=== PATIENT | male | born 1955 | race Two or more races ===

== ENCOUNTER 2025-05-02 15:53 | Emergency (ER) | payer MEDICARE, MEDICAID, SELFPAY ==
--- OUTSIDE RECORDS SUMMARY | 2024-04-05 03:30 | XMS_ITS ---
Author Organization [facility] in [place] Address [address] [place] [address] Care Team Providers Care Sliver Cutter Name Role Phone Hunter Montes MD Primary Care Provider Unavailabl e Provider, [facility] Unavailable [phone] Encounters Encounter Location Date Provider Diagnosis [facility] [address] [place] [address] 04/05/2024 [facility] Provider Plan Of Treatment No Information Progress Notes * Ryder FROST SrDOB:[birth year] (69 yo M)Acc No.[id number]:04/05/2024 UNLOCKED PROGRESS NOTE Patient: Gilma AGUILARRyder LEROY Sr Provider: A MI Provider :1955 A ge:68 Y S ex:Male Date:04/05/2024 Address:[address] [place], [place] [id number] Pcp:Hunter Montes MD Check In:07:51 AM EST * * Electronic signature of ASC Provider on 05/02/2025 at 04:06 PM EDT Sign off status: Pending Visit Status: A RR (Check-In) * Provider: A SC Provider Date: 04/05/2024 Generated for Keilai aida/Mara/eTransmitting on: 05/02/2025 04:06 PM EDT
--- OUTSIDE RECORDS SUMMARY | 2024-04-05 05:15 | XMS_ITS ---
Author Organization The [facility] in [place] Address [address] [place] [address] Care Team Providers Care Business Analysis Professional Name Role Phone Hunter Montes MD Primary Care Provider UnavailAdan Lowe Unavailable [phone] REASON FOR VISIT FISTULOGRAM Encounters Encounter Location Date Provider Diagnosis [facility] [address] [place] [address] 04/05/2024 Adan Beltran Stenosis of other vascular prosthetic devices, implants and grafts, initial encounter T82.858A and End stage renal disease N18.6 Assessments Encounter Date Diagnosis (ICD Code) Assessment Notes Treatment Notes Treatment Clinical Notes Section Notes 04/05/2024 Stenosis of other vascular prosthetic devices, implants and grafts, initial encounter (ICD-10 - T82.858A) 04/05/2024 End stage renal disease (ICD-10 - N18.6) Plan Of Treatment No Information Progress Notes * Ryder FROST SrDOB:[birth year] (68 yo M)Acc No.[id number]:04/05/2024 Patient: Wellington DUMONTel Sr Provider: John Beltran MD :1955 A ge:68 Y S ex:Male Date:04/05/2024 Address:[address] [place], [place] [phone] Pcp:Hunter Montes MD * * Sign off status: Completed Visit Status: P EN (Pending) true * Provider: John Beltran MD Date: 0 04/05/2024 Generated for Aki parra/Mara/Seven on: 0 05/02/2025 04:07 PM EDT
--- OUTSIDE RECORDS SUMMARY | 2024-04-12 07:30 | XMS_ITS ---
Author Organization [facility] in [place] Address [address] [place] [address] Care Team Providers Care Hospital Technician Name Role Phone Imm Hunter CHAND Primary Care Provider UnavailAdan Lowe Unavailable [phone] REASON FOR VISIT follow up from angio/stent Medications Medication SIG (Take, Route, Frequency, Duration) Notes Start Date End Date Status NovoLOG Mix 70/30 (70-30) 100 UNIT/ML as directed Subcutaneous 42 units BID Unknown Percocet 325 mg-5 mg 1 tablet TID Unknown Simvastatin 10 mg 1 tablet DAILY Unknown Vitamin B 12 100 MCG as directed Orally Daily Unknown Xphozah 30 MG TAKE ONE TABLET BY MOUTH TWICE A DAY for 30 Unknown amLODIPine Besylate 5 MG 1 tablet Orally Once a day for 30 day(s) 09/29/2020 Unknown Calcitriol 0.25 MCG 1 capsule Orally Mon , Wed, Fri for 30 day(s) 09/29/2020 Unknown EQ ClearLax 17 GM/SCOOP MIX 17 GRAMS IN 8 OUNCES OF LIQUID AND DRINK ONCE DAILY NEEDED. 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 Continue to use AVF for dialysis as before. Follow up as needed. Plan Of Treatment No Information Progress Notes * Ryder FROST SrDOB:[birth year] (68 yo M)Acc No.[id number]:04/12/2024 Progress Note Patient: Gilma Ryder DOLAN Sr Provider: John Beltran MD :1955 A ge:68 Y S ex:Male Date:04/12/2024 Address:[address] [place], [place] [phone] Pcp:Hunter Montes MD Check In:10:51 AM ESTCheck O ut:11:14 AM EST Subjective: * Chief Complaints: * 1 . Follow up from angio/stent. 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 Modified On:04/09/2019W/U Status:confirmed N18.4 Chronic kidney disea se, stage 4 (severe) Modified On:02/27/2018U Status:confirmed 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 Modified On:06/26/2018U Status:confirmed E10.51 DM (diabetes mellitu s) type I controlled, peripheral vascular disorder Modified On:08/09/2016U Status:confirmed N18.5 Chronic kidney disea se, stage 5 Modified On:09/29/2020U Status:confirmed N18.5 Chronic kidney disea se (CKD) stage G5/A1, glomerular filtration rate (GFR) less than or equal to 15 mL/min/1.73 square meter and albuminuria creatinine ratio less than 30 mg/g Modified On:09/30/2020U Status:confirmed N18.30 Chronic kidney disea se, stage 3 unspecified Modified On:02/22/2022U Status:confirmed N18.6 End-stage renal dise ase Modified On:02/23/2022U Status:confirmed T82.858A Stenosis of other va scular prosthetic devices, implants and grafts, initial encounter Modified On:03/24/2023U Status:confirmed N18.6 End stage renal dise ase Modified On:03/24/2023U Status:confirmed I77.0 Arteriovenous fistul a, acquired Modified On:04/12/2024U Status:confirmed * Medical History: H istory of diabetes mellitus. * Social History: T obacco Use: T obacco Use/Smoking P atient is a l ight tobacco smoker. * Medications: U nknown amLODIPine Besylate 2.5 MG Tablet 1 tablet Orally Once a day , Unknown amLODIPine Besylate 5 MG Tablet 1 tablet Orally Once a day , Unknown Calcitriol 0.25 MCG Capsule 1 capsule Orally Mon, Wed, Fri , Unknown EQ ClearLax(Polyethylene Glycol 3350) 17 GM/SCOOP Powder MIX 17 GRAMS IN 8 OUNCES OF LIQUID AND DRINK ONCE DAILY NEEDED. , Unknown Furosemide 40 MG Tablet 1 tablet Orally Once a day , Unknown Gabapentin 600 mg tablet 1 tablet TID , Unknown NovoLOG Mix 70/30(Insulin Aspart Prot & Aspart) (70-30) 100 UNIT/ML Suspension as directed Subcutaneous , Notes to Pharmacist: 42 units BID, Unknown Percocet(oxyCODONE-Acetaminophen) 325 mg-5 mg tablet 1 tablet TID , Unknown Simvastatin 10 mg tablet 1 tablet DAILY , Unknown Vitamin B 12 100 MCG Lozenge as directed Orally Daily , Unknown Xphozah(Tenapanor HCl (CKD)) 30 MG Tablet TAKE ONE TABLET BY MOUTH TWICE A DAY Objective: * Vitals: B P:133/81mm Hg, HR:82/min, Oxygen sat %:99%, Ht-cm: 177.8 cm. Assessment: * Assessment: 1. A rteriovenous fistula, acquired - I77.0 (Primary) Patient seen in office today to have stitches removed. Continue to use AVF for dialysis as before. Follow up as needed. Plan: * Treatment: * Procedure Codes: 9 9024 POST OP VISIT * * Sign off status: Completed Visit Status: C HK (Check Out) true * Provider: John Beltran MD Date: 0 04/12/2024 Generated for Aki parra/Mara/Allynitting on: 0 05/02/2025 04:05 PM EDT
--- OUTSIDE RECORDS SUMMARY | 2024-05-04 06:45 | XMS_ITS ---
Author Organization [facility] Address [address], [place] [address] Care Team Providers Care Special Warfare Operator Name Role Phone Dora Toney Primary Care Provider [phone] REASON FOR VISIT nerupoathy- Assess- CVD hx Medications Medication SIG (Take, Route, Frequency, Duration) Notes Start Date End Date Status Calcium Acetate (Phos Binder) 667 MG 2 capsules with meals Orally Three times a day for 30 days Active Insulin Syringe 31G X 5/16 1 ML 1 two times daily for 90 days 05/14/2013 Active Vitamin D3 50 MCG (1999) TAKE 1 CAPSULE BY MOUTH ONCE DAILY Oral for 30 Days Active Pen Epping 32G X 4 MM as directed twice a day for 90 days 03/23/2022 Active rOPINIRole HCl 0.25 MG TAKE 1 TABLET BY MOUTH ONCE DAILY Oral for 30 Active Gabapentin 100 MG 2 capsules in the morning, 1 capsule in the evening. Orally as directed for 30 days OARRS reviewed without issue Active Lancets - 1 Lancet Used Twice daily to check blood sugar -whatever brand insurance covers Active Docusate Sodium 100 MG 1 capsule as needed Orally Once a day Active HumuLIN 70/30 (70-30) 100 UNIT/ML 38 units in the morning, 36 units in the evening Subcutaneous twice a day for 30 days 11/12/2021 Active HYDROcodone-Acetami nophen 5-325 MG 2 tablet as needed on dialysis days Orally three times weekly for 30 days OARRS reviewed without issue. 12/14/2023 Not-Taking Pantoprazole Sodium 40 MG 1 tablet Orally Once a day for 30 days Active FreeStyle Petra 14 Day Sensor - APPLY 1 SENSOR TO THE BACK OF THE ARM, ONCE EVERY 14 DAYS. for 84 days 6 sensors Active Blood Glucose Meter 1 Meter. Given 1 time. Used daily to check blood sugars -whatever brand insurance covers Active Blood Glucose Test - 1 Strip Used Twice daily to check sugar -whatever brand insurance covers Active Social History Sex Assigned At : Social History Observation Description Sex Assigned At Male Encounters Encounter Location Date Provider Diagnosis Main [address] [place], [place] [id number] 05/04/2024 Dora Toney Plan Of Treatment No Information Progress Notes * Wellington FROSTRimaOB:1955 (69 yo M)Acc No.[id number]:05/04/2024 Medical Note Patient: Ryder DUMONT Provider: Héctor Toney :1955 A ge:68 Y S ex:Male Date:05/04/2024 Address:[address] [place], [place] [id number] Subjective: * Chief Complaints: * 1 . nerupoathy- Assess- CVD hx. * Medical History: * Medications: T aking Gabapentin 100 MG Capsule 2 capsules in the morning, 1 capsule in the evening. Orally as directed , Notes to Pharmacist: OARRS reviewed without issue, Taking Docusate Sodium 100 MG Capsule 1 capsule as needed Orally Once a day , Taking rOPINIRole HCl 0.25 MG Tablet TAKE 1 TABLET BY MOUTH ONCE DAILY Oral , Taking Vitamin D3 50 MCG (1999 UT) Capsule TAKE 1 CAPSULE BY MOUTH ONCE DAILY Oral , Taking Pen Epping 32G X 4 MM Miscellaneous as directed twice a day , Taking Insulin Syringe 31G X 5/16 1 ML Misc 1 two times daily , Taking Calcium Acetate (Phos Binder) 667 MG Capsule 2 capsules with meals Orally Three times a day , Taking Pantoprazole Sodium 40 MG Tablet Delayed Release 1 tablet Orally Once a day , Taking FreeStyle Petra 14 Day Sensor - Miscellaneous APPLY 1 SENSOR TO THE BACK OF THE ARM, ONCE EVERY 14 DAYS. , Notes to Pharmacist: 6 sensors, Taking Blood Glucose Meter 1 Meter. Given 1 time. Used daily to check blood sugars , Notes to Pharmacist: -whatever brand insurance covers, Taking Blood Glucose Test - Strip 1 Strip Used Twice daily to check sugar , Notes to Pharmacist: -whatever brand insurance covers, Taking Lancets - Miscellaneous 1 Lancet Used Twice daily to check blood sugar , Notes to Pharmacist: -whatever brand insurance covers, Taking HumuLIN 70/30 (70-30) 100 UNIT/ML Suspension 38 units in the morning, 36 units in the evening Subcutaneous twice a day , Not-Taking/PRN HYDROcodone-Acetaminophen 5-325 MG Tablet 2 tablet as needed on dialysis days Orally three times weekly , Notes to Pharmacist: OARRS reviewed without issue. Objective: * Vitals: Assessment: Plan: * Treatment: * Billing Information: * Visit Code: * Procedure Codes: * Electronic signature of MARISA Milner on 05/02/2025 at 04:06 PM EDT Sign off status: Pending * Provider: Héctor Toney Date: 05/04/2024 Generated for Aki Rush on: 05/02/2025 04:06 PM EDT
--- OUTSIDE RECORDS SUMMARY | 2024-05-21 08:45 | XMS_ITS ---
Author Organization [facility] Address [address], [place] [address] Care Team Providers Care Lumber Tailer Name Role Phone Dora Toney Primary Care Provider REASON FOR VISIT nerupoathy- Assess- CVD hx Medications Medication SIG (Take, Route, Frequency, Duration) Notes Start Date End Date Status Pantoprazole Sodium 40 MG 1 tablet Orally Once a day for 30 days Active FreeStyle Petra 14 Day Sensor - APPLY 1 SENSOR TO THE BACK OF THE ARM, ONCE EVERY 14 DAYS. for 84 days 6 sensors Active Insulin Syringe 31G X 5/16 1 ML 1 two times daily for 90 days 05/14/2013 Active Calcium Acetate (Phos Binder) 667 MG 2 capsules with meals Orally Three times a day for 30 days Active Blood Glucose Meter 1 Meter. Given 1 time. Used daily to check blood sugars -whatever brand insurance covers Active Vitamin D3 50 MCG (1999 UT) TAKE 1 CAPSULE BY MOUTH ONCE DAILY Oral for 30 Days Active Pen Eureka 32G X 4 MM as directed twice a day for 90 days 03/23/2022 Active Docusate Sodium 100 MG 1 capsule as needed Orally Once a day Active rOPINIRole HCl 0.25 MG TAKE 1 TABLET BY MOUTH ONCE DAILY Oral for 30 Active Gabapentin 100 MG 2 capsules in the morning, 1 capsule in the evening. Orally as directed for 30 days OARRS reviewed without issue Active Lancets - 1 Lancet Used Twice daily to check blood sugar -whatever brand insurance covers Active HumuLIN 70/30 (70-30) 100 UNIT/ML 38 units in the morning, 36 units in the evening Subcutaneous twice a day for 30 days 11/12/2021 Active HYDROcodone-Acetami nophen 5-325 MG 2 tablet as needed on dialysis days Orally three times weekly for 30 days OARRS reviewed without issue. 12/14/2023 Not-Taking Blood Glucose Test - 1 Strip Used Twice daily to check sugar -whatever brand insurance covers Active Social History Sex Assigned At : Social History Observation Description Sex Assigned At Male Encounters Encounter Location Date Provider Diagnosis Main [address] [place], [place] [id number] 05/21/2024 Dora Toney Plan Of Treatment No Information Progress Notes * Wellington FROSTRimaOB:1955 (69 yo M)Acc No.[id number]:05/21/2024 Medical Note Patient: Ryder DUMONT Provider: Héctor Toney :1955 A ge:68 Y S ex:Male Date:05/21/2024 Address:[address] [place], [place] [id number] Subjective: * Chief Complaints: * 1 . [...] MOUTH ONCE DAILY Oral , Taking Pen Eureka 32G X 4 MM Miscellaneous as directed [...] signature of MARISA Milner on 05/02/2025 at 04:08 PM EDT Sign off status: Pending * Provider: Héctor Toney Date: 05/21/2024 Generated for Aki Rush on: 05/02/2025 04:08 PM EDT
--- OUTSIDE RECORDS SUMMARY | 2024-05-31 06:45 | XMS_ITS ---
Author Organization [facility] Address [address] [place] [address] Care Team Providers Care Production Designer Name Role Phone Dora Toney Primary Care Provider [phone] REASON FOR VISIT neuropathy Medications Medication SIG (Take, Route, Frequency, Duration) Notes Start Date End Date Status HumuLIN 70/30 (70-30) 100 UNIT/ML 38 units [...] check sugar -whatever brand insurance covers Active Lancets - 1 Lancet Used Twice daily to check blood sugar -whatever brand insurance covers Active Blood Glucose Meter 1 Meter. Given 1 time. Used daily to check blood sugars -whatever brand insurance covers Active FreeStyle Petra 14 Day Sensor - APPLY 1 SENSOR TO THE BACK OF THE ARM, ONCE EVERY 14 DAYS. for 84 days 6 sensors Active Calcium Acetate (Phos Binder) 667 MG 2 capsules with meals Orally Three times a day for 30 days Active Pantoprazole Sodium 40 MG 1 tablet Orally Once a day for 30 days Active Pen Osseo 32G X 4 MM as directed twice a day for 90 days 03/23/2022 Active Insulin Syringe 31G X 5/16 1 ML 1 two times daily for 90 days 05/14/2013 Active Docusate Sodium 100 MG 1 capsule as needed Orally Once a day Active rOPINIRole HCl 0.25 MG TAKE 1 TABLET BY MOUTH ONCE DAILY Oral for 30 Active Gabapentin 100 MG 2 capsules in the morning, 1 capsule in the evening. Orally as directed for 30 days OARRS reviewed without issue Active Vitamin D3 50 MCG (1999) TAKE 1 CAPSULE BY MOUTH ONCE DAILY Oral for 30 Days Active Social History Sex Assigned At : Social History Observation Description Sex Assigned At Male Encounters Encounter Location Date Provider Diagnosis Main [address] [place], [place] [id number] 05/31/2024 Dora Toney Plan Of Treatment No Information Progress Notes * FROSTJose EduardoOB:1955 (69 yo M)Acc No.[id number]:05/31/2024 Medical Note Patient: Ryder DUMONT Provider: Héctor Toney :1955 A ge:68 Y S ex:Male Date:05/31/2024 Address:[address] [place], [place] [id number] Subjective: * Chief Complaints: * 1 . Neuropathy. * Medical History: * Medications: T aking [...] MOUTH ONCE DAILY Oral , Taking Pen Osseo 32G X 4 MM Miscellaneous as directed [...] EDT Sign off status: Pending * Provider: Hécotr Toney Date: 05/31/2024 Generated for Aki Rush on: 05/02/2025 04:06 PM EDT
[2025-05-02 16:01] VITALS: BP 177/84; PULSE 78; TEMP 37; O2SAT 100; BMI 28.1
--- OUTSIDE RECORDS SUMMARY | 2025-05-02 16:05 | XMS_ITS | Encounter Summary ---
Author Organization [facility] Address [id number] [address] [place] [address] Care Team Providers Care Diabetes Manager Name Role Phone Litzy Alamo APRN-SERVICE LINE BUS CLEANER Primary Care Provider Encounter Details Date Type Department Care Team (Late st Contact Info) Description 05/29/2021 Abstract [facility] [address] [place] [phone] Letty Sampson COA Social History Tobacco Use Types Packs/Day Years Used Date Smoking Tobacco: Light Smoker Cigarettes Smokeless Tobacco: Never Alcohol Use Standard Drinks/Week Comments Yes 0 (1 standard drink = 0.6 oz pur e alcohol) PHQ-2 Answer Date Recorded Total Score 0 01/01/2021 Childcare Answer Date Recorded Childcare Unknown 03/28/2019 Employment Answer Date Recorded Employment Unknown 03/28/2019 Purpose - Life Answer Date Recorded I have a purpose and direction in my life. Stron gly Agree 01/01/2021 Sex and Gender Information Value Date Recorded Sex Assigned at Not on file Legal Sex Male 11:26 AM EDT Gender Identity Not on file Sexual Orientation Not on file documented as of this encounter Plan of Treatment Upcoming Encounters Date Type Department Care Team (Late st Contact Info) Description 05/09/2025 11:10 AM EDT Office Visit [facility] [address] [place] [phone] Rayshawn Gibbons, DO [address] [place] [address] 05/24/2025 11:00 AM EDT Office Visit [facility] [address] [place] [phone] Litzy Alamo APRN-CNP [address] [place] [phone] documented as of this encounter Visit Diagnoses Not on filedocumented in this encounter Additional Health Concerns Assessment Noted Time PHQ-9 Depression Total Score: 0 01/02/20 21 3:05 PM EDT documented as of this encounter Care Teams Diabetes Manager Relationship Specialty Start Date End Date Litzy Alamo APRN-CNP [address] [place] [phone] PCP - General Nurse Practitioner 07/23/24 documented as of this encounter
--- OUTSIDE RECORDS SUMMARY | 2025-05-02 16:05 | XMS_ITS | Encounter Summary ---
Author Organization [employer] [facility] Address [id number] [address] [place] [address] Care Team Providers Care Spanner Operator Name Role Phone Litzy Alamo APRN-COMMERCIAL DIVER Primary Care Provider Encounter Details Date Type Department Care Team (Late st Contact Info) Description 05/29/2021 Abstract [facility] [address] [place] [phone] Letty Sampson COA Social History Tobacco Use [...] [facility] [address] [place] [phone] Rayshawn Gibbons, DO [address] [place] [address] 05/24/2025 11:00 AM EDT Office Visit [facility] [address] [place] [phone] Litzy Alamo APRN-CNP [address] [place] [phone] documented as of this encounter Visit Diagnoses Not on filedocumented in this encounter Additional Health Concerns Assessment Noted Time PHQ-9 Depression Total Score: 0 01/02/20 21 3:05 PM EDT documented as of this encounter Care Teams Spanner Operator Relationship Specialty Start Date End Date Litzy Alamo APRN-CNP [address] [place] [phone] PCP - General Nurse Practitioner 07/23/24 documented as of this encounter
--- OUTSIDE RECORDS SUMMARY | 2025-05-02 16:05 | XMS_ITS | Clinical Summary ---
Author Organization [facility] Address [address] [place], [place] [id number] Care Team Providers Care Lumber Sorter Name Role Phone Litzy Alamoystal [facility] Primary Care Provid er Allergies No known active allergies Medications ACCU-CHEK PEDRO PLUS TEST STRP test stripIndications :Anemia, unspecified 12/09/19 15 Active ACCU-CHEK PEDRO PLUS METER miscIndications: Anemia, unspecified 12/09/19 15 Active cefadroxil (DURICEF) 1 gram tabletIndication s:Anemia, unspecified 01/11/20 15 Active diazepam (VALIUM) 10 mg tabletIndication s:Anemia, unspecified 01/01/20 15 Active Ferrous Sulfate 325 mg (65 mg iron) tabletIndication s:Anemia, unspecified 12/12/19 15 Active gabapentin (NEURONTIN) 600 mg tabletIndication s:Anemia, unspecified 12/30/19 15 Active NOVOLIN 70/30 100 unit/mL (70-30)Indicatio ns:Anemia, unspecified 12/24/19 15 Active HYDROcodone-acet aminophen (NORCO) 5-325 mg per tabletIndication s:Anemia, unspecified 10/08/20 14 Active ACCU-CHEK SOFTCLIX LANCETS lancetsIndicatio ns:Anemia, unspecified 12/09/19 15 Active lisinopril 2.5 mg tabletIndication s:Anemia, unspecified 12/31/19 15 Active nitrofurantoin monhydrate and macrocrystal (MACROBID) 100 mg capsuleIndicatio ns:Anemia, unspecified 11/28/19 15 Active oxyCODONE-acetam inophen (PERCOCET) 5-325 mg tabletIndication s:Anemia, unspecified 12/21/19 15 Active GAVILYTE-G 236-22.74-6.74 gram suspensionIndica tions:Anemia, unspecified 01/14/20 15 Active simvastatin (ZOCOR) 10 mg tabletIndication s:Anemia, unspecified 10/29/19 15 Active sulfamethoxazole -trimethoprim (BACTRIM DS,SEPTRA DS) 800-160 mg per tabletIndication s:Anemia, unspecified 01/14/20 15 Active tamsulosin ER (FLOMAX) 0.4 mg [id number]: Anemia, unspecified 01/09/20 15 Active traMADol (ULTRAM) 50 mg tabletIndication s:Anemia, unspecified 11/15/19 15 Active iv contrast (will be provided with radiology test) CT Chest ABD/PEL-Inject, intravenously, once for 1 dose.No IV access, insert saline lock prior to the beginning of sedation, infusion, injection of imaging exam. Discontinue saline lock post exam. If Pt. has a central line or IVAD, may access for administration according to line specific nursing protocol. Once exam is complete flush line and de-access according to line specific nursing protocol in the CT contrast administration guidelines link. 1 Each 07/18/20 Active enteric contrast (will be provided with radiology test) For CT CHESTABD/PEL W IVCON Routine order Administer, As Directed One Time Only, via Oral, Rectal, both Oral and Rectal, Enteric Tube, Stoma or Indwelling Catheter, Enteric Contrast as designated per enteric contrast guidelines 1 Each 07/18/20 24 Active iv contrast (will be provided with radiology test) MRI Rectum Inject, intravenously, once for 1 dose. No IV access, insert saline lock prior to the beginning of sedation, infusion, injection of imaging exam. Discontinue saline lock post exam. If Pt has a central line or IVAD, may access for administration according to line specific nursing protocol. Once exam is complete flush line and de-access according to line specific nursing protocol in the MR contrast administration guidelines link. 1 Each 07/18/20 24 Active enteric contrast (will be provided with radiology test) MRI RECTUM WO/W. Administer, As Directed One Time Only, via Oral, Rectal, both Oral and Rectal, Enteric Tube, Stoma or Indwelling Catheter, Enteric Contrast as designated per enteric contrast guidelines 1 Each 07/18/20 24 Active iv contrast (will be provided with radiology test) MRI Rectum Inject, intravenously, once for 1 dose. No IV access, insert saline lock prior to the beginning of sedation, infusion, injection of imaging exam. Discontinue saline lock post exam. If Pt has a central line or IVAD, may access for administration according to line specific nursing protocol. Once exam is complete flush line and de-access according to line specific nursing protocol in the MR contrast administration guidelines link. 1 Each 09/04/20 24 Active enteric contrast (will be provided with radiology test) MRI RECTUM WO/W. Administer, As Directed One Time Only, via Oral, Rectal, both Oral and Rectal, Enteric Tube, Stoma or Indwelling Catheter, Enteric Contrast as designated per enteric contrast guidelines 1 Each 09/04/20 24 Active Active Problems Problem Noted Date Diagnosed Date Rectal polyp 07/10/2024 Anemia 12/17/2014 Overview (07/17/2015): ICD-10 Go-Live Encounters Date Type Department Care Team Description 04/22/2025 Telephone General [facility] [address] [place] [address] Barber Lauren MD 03/06/2025 Telephone Colorectal Surgery [facility] [address] [place] [address] Barber Lauren MD from Last 3 Months Family History Medical History Relation Comments Colon Cancer No Family History Social History Tobacco Use Types Packs/Day Years Used Date Smoking Tobacco: Every Day Cigarettes 0.5 58.5 Started: 1964 Smokeless Tobacco: Never Comments:0.5-1 ppd for 57 ye ars Alcohol Use Standard Drinks/Week Comments No 0 (1 standard drink = 0.6 oz pur e alcohol) Area Deprivation Index Answer Date Geovany rded National Score (1-100), lower number is lower ri sk 88 09/06/2024 State Score (1-10), lower number is lower risk 8 09/06/2024 Data from: https://www.neighborhoodatlas.medicine.[facility].edu/. Last address used for calculation [address] 09/06/2024 Sex and Gender Information Value Date Recorded Sex Assigned at Not on file Legal Sex Male 10:32 AM EST Gender Identity Not on file Sexual Orientation Not on file Last Filed Vital Signs Vital Sign Reading Time Taken Comments Blood Pressure 166/89 07/10/2024 4:45 PM EDT Pulse 98 07/10/2024 4:01 PM EDT Temperature 36.6 C (97.8 F) 07/10/2024 4:45 PM EDT Respiratory Rate 18 07/10/2024 4:45 PM EDT Oxygen Saturation 98% 07/10/2024 4:45 PM EDT Inhaled Oxygen Concentration - - Weight 95.3 kg (210 lb) 07/03/2024 2:03 PM EDT Height 177.8 cm (5' 10 ) 07/03/2024 2:03 PM EDT Body Mass Index 30.13 07/03/2024 2:03 PM EDT Plan of Treatment Upcoming Encounters Date Type Department Care Team (Late st Contact Info) Description 07/02/2025 1:45 PM EDT Appointment Procedures [address] [place] [address] [place] [address] [place], [place] [id number] Encounter for follow-up surveillance of rectal cancer [Z08, Z85.048] Health Maintenance Due Date Last Done Comments Abdominal Aortic Aneurysm Screening 1955 Anxiety Screening 1975 Depression Screening [address] Colonography 2002 Cologuard (FIT-DNA) 2002 Colonoscopy 2002 Fecal Occult Blood 2002 Prostate Cancer Screening Discussion 2002 Shingrix Vaccine (1 of 2) 2007 Pneumococcal Vaccine: 50+ (2 of 2 - PCV) 04/27/2017 04/27/2016 RSV Vaccine (1 - Risk 60-74 years 1-dose series) 2017 DTaP,Tdap,Td Vaccine (2 - Td or Tdap) 02/19/2022 02/20/2012 Covid-19 Vaccine (3 - 2023-2 5 season) 2024 08/08/2021, 07/09/2021 Advance Directive Discussion 10/17/2024 Medicare Advantage Annual We llness Visit 10/17/2024 Influenza Vaccine (#1) 2025 , 07/12/2020, 07/16/2019, Additional history exists Lung Cancer Screening 08/30/2025 08/30/2024 Diabetes Screening 12/20/2026 12/21/2023, 0 05/18/2023, 04/19/2023, Additional history exists Colorectal Cancer Screening 07/03/2029 Sigmoidoscopy 07/03/2029 07/03/2024 Hepatitis C Screening Completed 05/18/2023 Procedures Procedure Name Priority Date/Time Associated Diagnosis Comments CT CHEST W IVCON Routine 08/30/2024 1:48 PM EST Rectal cancer (HCC) SIGMOIDOSCOPY Routine 07/03/2024 3:26 PM EDT Rectal mass from Last 3 Months or Most Recently Relevant to Health Maintenance Results * CT CHEST W IVCON (08/30/2024 1:48 PM EST) Anatomical Region Laterality Modality Chest Nuclear Medicine , Nuclear Medicine 08/30/2024 1:48 PM EST Impressions 08/31/2024 12:10 PM EST IMPRESSION: 1. Nonspecific patchy groundglass opacities within the right lower lobe, likely infectious/inflammatory in nature. Suggest correlation with follow-up examinations to assess for stability. 2. No substantial intrathoracic adenopathy is appreciated. Transcribe Date/Time: Aug 31 2024 9:15A Dictated by: RICHIE LOPEZ MD This examination was interpreted and the report reviewed and electronically signed by: RICHIE LOPEZ MD on Aug 31 2024 12:07PM EST Thank you for allowing us to participate in the care of your patient. Should there be any questions regarding this interpretation, please call [phone]. If you are unable to reach us at the number above, please feel free to contact [facility] at [phone]. Narrative 08/31/2024 12:10 PM EST * * *Final Report* * * DATE OF EXAM: Aug 30 2024 1:48PM [facility] 0539 - CT CHEST W IVCON / PROCEDURE REASON: Rectal cancer (HCC) * * * * Physician Interpretation * * * * RESULT: EXAMINATION: CHEST CT WITH CONTRAST CLINICAL HISTORY: Rectal carcinoma Technique: Spiral CT acquisition of the chest from the thoracic inlet to the upper abdomen following IV contrast. MQ: CTCW_6 Contrast: 100 mL Omnipaque [address] Radiation dose: Integrated Dose-length product (DLP) for this visit = 1185 mGy*cm CT Dose Reduction Employed: Automated exposure control (AEC) Comparison: None RESULT: Limitations: None. Lines, tubes, and devices: None. Lung parenchyma , airways, and pleural space: The trachea and major airways appear patent. No substantial pleural effusion. No consolidative process. Nonspecific ground glass opacities within the right lower lobe, images 90-95, series 4 are noted, likely infectious/inflammatory in nature. Correlation with follow-up examinations is recommended. Lower neck, lymph nodes, and mediastinum: Mild heterogeneous enlargement of the thyroid gland is noted. No substantial supraclavicular or axillary lymphadenopathy. No substantial mediastinal or hilar adenopathy is appreciated. Heart, pericardium, and thoracic vessels: The thoracic aorta is normal in caliber. Coronary artery calcification is noted. No substantial pericardial effusion. Bones/Soft Tissues: Degenerative change within the thoracic spine is appreciated. No osseous destructive process is identified. Upper Abdomen: A CT examination of the abdomen has been performed concurrently and will be dictated separately. Manager Radio (topogram) images: No additional findings. Procedure Note Provider, [facility] [place] - 08/31/2024 * * *Final Report* * * DATE OF EXAM: Aug 30 2024 1:48PM [facility] 0539 - CT CHEST W IVCON / PROCEDURE REASON: Rectal cancer (HCC) * * * * Physician Interpretation * * * * RESULT: EXAMINATION: CHEST CT WITH CONTRAST CLINICAL HISTORY: Rectal carcinoma Technique: Spiral CT acquisition of the chest from the thoracic inlet to the upper abdomen following IV contrast. MQ: CTCW_6 Contrast: 100 mL Omnipaque [address] Radiation dose: Integrated Dose-length product (DLP) for this visit = 1185 mGy*cm CT Dose Reduction Employed: Automated exposure control (AEC) Comparison: None RESULT: Limitations: None. Lines, tubes, and devices: None. Lung parenchyma , airways, and pleural space: The trachea and major airways appear patent. No substantial pleural effusion. No consolidative process. Nonspecific ground glass opacities within the right lower lobe, images 90-95, series 4 are noted, likely infectious/inflammatory in nature. Correlation with follow-up examinations is recommended. Lower neck, lymph nodes, and mediastinum: Mild heterogeneous enlargement of the thyroid gland is noted. No substantial supraclavicular or axillary lymphadenopathy. No substantial mediastinal or hilar adenopathy is appreciated. Heart, pericardium, and thoracic vessels: The thoracic aorta is normal in caliber. Coronary artery calcification is noted. No substantial pericardial effusion. Bones/Soft Tissues: Degenerative change within the thoracic spine is appreciated. No osseous destructive process is identified. Upper Abdomen: A CT examination of the abdomen has been performed concurrently and will be dictated separately. Manager Radio (topogram) images: No additional findings. IMPRESSION IMPRESSION: 1. Nonspecific patchy groundglass opacities within the right lower lobe, likely infectious/inflammatory in nature. Suggest correlation with follow-up examinations to assess for stability. 2. No substantial intrathoracic adenopathy is appreciated. Transcribe Date/Time: Aug 31 2024 9:15A Dictated by: RICHIE LOPEZ MD This examination was interpreted and the report reviewed and electronically signed by: RICHIE LOPEZ MD on Aug 31 2024 12:07PM EST Thank you for allowing us to participate in the care of your patient. Should there be any questions regarding this interpretation, please call [phone]. If you are unable to reach us at the number above, please feel free to contact [facility] at [phone]. us Barber Lauren MD CT-PAMA Final Result * SIGMOIDOSCOPY (07/03/2024 3:26 PM EDT) Anatomical Region Laterality Modality Other 07/03/2024 3:04 PM EDT Narrative 07/03/2024 3:33 PM EDT [facility] Gastrointestinal Endoscopy Patient Name: Rdyer Frost Procedure Date: 07/03/2024 3:04 PM Date of : 1955 Admit Type: Outpatient Age: 69 Room: PROCEDURE A Gender: Male Note Status: Finalized Attending MD: Barber Lauren MD, [id number] Procedure: Flexible Sigmoidoscopy Indications: Hematochezia Providers: Barber Lauren MD Patient Profile: This is a 69 year old male. Refer to note in patient chart for documentation of history and physical. Last Colonoscopy: within the past month. Referring Physician: Barber Lauren MD (Referring MD) Medicines: Monitored Anesthesia Care Complications: No immediate complications. Requesting Provider: Procedure: Pre-Anesthesia Assessment: - Prior to the procedure, a History and Physical was performed, and patient medications and allergies were reviewed. The patient is competent. The risks and benefits of the procedure and the sedation options and risks were discussed with the patient. All questions were answered and informed consent was obtained. Patient identification and proposed procedure were verified by the physician and the nurse in the pre-procedure area in the endoscopy suite. Mental Status Examination: alert and oriented. Airway Examination: normal oropharyngeal airway and neck mobility. ASA Grade Assessment: III - A patient with severe systemic disease. After reviewing the risks and benefits, the patient was deemed in satisfactory condition to undergo the procedure. The anesthesia plan was to use monitored anesthesia care (MAC). Immediately prior to administration of medications, the patient was re-assessed for adequacy to receive sedatives. The heart rate, respiratory rate, oxygen saturations, blood pressure, adequacy of pulmonary ventilation, and response to care were monitored throughout the procedure. The physical status of the patient was re-assessed after the procedure. After obtaining informed consent, the scope was passed under direct vision. The Colonoscope was introduced through the anus and advanced to the rectosigmoid junction. The flexible sigmoidoscopy was accomplished without difficulty. The patient tolerated the procedure well. The quality of the bowel preparation was good. Moderate Sedation: MAC anesthesia was administered by the anesthesia team. Total Procedure Duration: 0 hours 9 minutes 13 seconds Findings: The digital rectal exam revealed a firm rectal mass. A fungating non-obstructing mass was found in the distal rectum. Biopsies were taken with a cold forceps for histology. This was right lateral, distal to the distal rectal valve, and extended down to the dentate line The exam was otherwise without abnormality. Impression: - Rectal mass. - Likely malignant tumor in the distal rectum. Biopsied. - The examination was otherwise normal. Recommendation: - Discharge patient to home. - Resume previous diet. - Await pathology results. Procedure Code(s): --- Professional --- 67898, 52, Sigmoidoscopy, flexible; with biopsy, single or multiple CPT copyright 2020 [employer]. All rights reserved. The codes documented in this report are preliminary and upon dehydrogenation converter operator review may be revised to meet current compliance requirements. Attending Participation: I personally performed the entire procedure. Scope In: 3:15:47 PM Scope Out: 3:25:00 PM MD Barber Olsen MD 07/03/2024 3:30:49 PM This report has been signed electronically by Barber Lauren MD Number of Addenda: 0 Note Initiated On: 07/03/2024 3:04 PM Estimated Blood Loss: Estimated blood loss was minimal. Barber Lauren MD DIGESTIVE DISEASE Final Result from Last 3 Months or Most Recently Relevant to Health Maintenance Insurance MEDICAID [place] [employer] MEDICARE ADVANTAGE O Care Teams Lumber Sorter Relationship Specialty Start Date End Date Litzy Alamo CNP [facility] [place] [phone] PCP - General Family Medicine 07/09/24
--- OUTSIDE RECORDS SUMMARY | 2025-05-02 16:06 | XMS_ITS | Encounter Summary ---
Author Organization [facility] Address [id number] [address] [place] [address] Care Team Providers Care Brick Pitcher Name Role Phone Litzy Alamo [facility] Primary Care Provider Reason for Visit * Reason Comments Med Change Request Encounter Details Date Type Department Care Team ([facility] st Contact Info) Description 08/03/2024 Refill [facility] [address] [place] [phone] Litzy Alamo APRN-[facility] [address] [place] [phone] Social History Tobacco Use Types Packs/Day Years Used Date Smoking Tobacco: Light Smoker Cigarettes Smokeless Tobacco: Never Comments:1x per week Alcohol Use Standard Drinks/Week Comments Yes 0 (1 standard drink = 0.6 oz pur e alcohol) Occasional PHQ-2 Answer Date Recorded Total Score 0 07/23/2024 Housing Instability Answer Date Recorde d Are you worried or concerned that in the next two months you may not have stable housing that you own, rent or stay in as a part of a household? No 04/19/2023 Childcare Answer Date Recorded Childcare Unknown 03/28/2019 Employment Answer Date Recorded Employment Unknown 03/28/2019 Hunger Screening Answer Date Recorded Within the past 12 months we worried whether our food would run out before we got money to buy more. Never True 07/23/2024 Within the past 12 months th e food we bought just didn't last and we didn't have money to get more. Never True 07/23/2024 Purpose - Life Answer Date Recorded I [...] Description 05/09/2025 11:10 AM EDT Office Visit [facility] [address] [place] [address] Rayshawn Gibbons, DO [address] [facility] [place], [place] [phone] 05/24/2025 11:00 AM EDT Office Visit [facility] [address] [place] [address] Litzy Alamo APRN-CNP [address] [place] [phone] documented as of this encounter Goals Goal Patient Goal Type Associated Problems Recent Progress Patient-Stated? Author <enter goal here> General Yes Paula Albarado LISW Note: Evaluation of progress towards goal: Discharge home with home care. documented as of this encounter Visit Diagnoses Not on filedocumented in this encounter Additional Health Concerns Assessment Noted Time PHQ-9 Depression Total Score: 0 07/23/20 24 2:09 PM EDT documented as of this encounter Care Teams Brick Pitcher Relationship Specialty Start Date End Date Litzy Alamo APRN-CNP [address] [place] [address] PCP - General Nurse Practitioner 07/23/24 documented as of this encounter
--- OUTSIDE RECORDS SUMMARY | 2025-05-02 16:06 | XMS_ITS | Encounter Summary ---
Author Organization Apptive s tem Address [id number] [address] [place] [address] Care Team Providers Care Bus Mechanic Name Role Phone Litzy Alamo [employer] Primary Care Provider Encounter Details Date Type Department Care Team (Late st Contact Info) Description 11/05/2020 Telephone [facility] [address] [place] [address] [address] [place] [address] Vahid Evangelista CMA Social History Tobacco Use Types Packs/Day Years Used Date Smoking Tobacco: Light Smoker Cigarettes Smokeless Tobacco: Never Alcohol Use Standard Drinks/Week Comments Yes 0 (1 standard drink = 0.6 oz pur e alcohol) Childcare Answer Date Recorded Childcare Unknown 03/28/2019 Employment Answer Date Recorded Employment Unknown 03/28/2019 Purpose - Life Answer Date Recorded Purpose and direction in life Unknown Sex and Gender Information Value Date Recorded Sex Assigned at Not on file Legal Sex Male 11:26 AM EDT Gender Identity Not on file Sexual Orientation Not on file COVID-19 Exposure Response Date Recorded In the last month, have you been in contact with someone who was confirmed or suspected to have Coronavirus / COVID-19? No / Unsure 11/04/2020 9:56 AM EST documented as of this encounter Plan of Treatment Upcoming Encounters Date Type Department Care Team (Late st Contact Info) Description 05/09/2025 11:10 AM EDT Office Visit [facility] [address] [place] [address] Rayshawn Gibbons, DO [address] [facility] [place], [place] [phone] 05/24/2025 11:00 AM EDT Office Visit [facility] [address] [place] [phone] Litzy Alamo APRN-CNP [address] [place] [phone] documented as of this encounter Visit Diagnoses Not on filedocumented in this encounter Care Teams Bus Mechanic Relationship Specialty Start Date End Date Litzy Alamo APRN-CNP [address] [place] [phone] PCP - General Nurse Practitioner 07/23/24 documented as of this encounter
--- OUTSIDE RECORDS SUMMARY | 2025-05-02 16:06 | XMS_ITS | Clinical Summary ---
Author Organization [facility] Healthcare Address [address] [place] [address] Care Team Providers Care Teacher Industrial Arts Name Role Phone Unavailable Primary Care Provider Unavailabl e Social History Tobacco Use Types Packs/Day Years Used Date Smoking Tobacco: Never Assessed Sex and Gender Information Value Date Recorded Sex Assigned at Not on file Legal Sex Male 8:32 PM EDT Gender Identity Not on file Sexual Orientation Not on file Last Filed Vital Signs Vital Sign Reading Time Taken Comments Blood Pressure 161/96 06/26/2019 12:00 PM EDT Pulse - - Temperature - - Respiratory Rate - - Oxygen Saturation - - Inhaled Oxygen Concentration - - Weight 109 kg (240 lb) 06/26/2019 12:00 PM EDT Height 177.8 cm (5' 10 ) 06/26/2019 12:00 PM EDT Body Mass Index 34.44 06/26/2019 12:00 PM EDT Plan of Treatment Not on file Insurance [employer] MEDICARE ADVANTAGE
--- OUTSIDE RECORDS SUMMARY | 2025-05-02 16:06 | XMS_ITS | Clinical Summary ---
Author Organization Cerniums tem Address [id number] [address] [place] [address] Care Team Providers Care Auditor In Charge Name Role Phone AlamoBritney esquivelLitzy APRN-DIABETES EDUCATOR Primary Care Provider Allergies Active Allergy Reactions Criticality Noted Date Comments Acetaminophen Nausea 06/01/2024 Sitagliptin GI Disturbance 04/10/2018 Oxycodone Nausea 06/01/2024 Oxycodone-Acetaminophen Nausea And Vomiting Low 09/2021 Medications ACCU-CHEK PEDRO PLUS TEST STRP strip USE 1 STRIP TO CHECK GLUCOSE TWICE DAILY NEEDED 07/31/2019 Active ACCU-CHEK SOFT DEV LANCETS kit USE 1 TO CHECK GLUCOSE TWICE DAILY NEEDED 08/02/2019 Active ondansetron (ZOFRAN) 4 mg tablet Take 1 tablet (4 mg total) by mouth every 8 (eight) hours as needed for nausea or vomiting. Active rOPINIRole (REQUIP) 0.25 mg tablet Take 1 tablet (0.25 mg total) by mouth nightly. 06/03/2021 Active docusate sodium (COLACE) 100 mg capsule Take 1 capsule (100 mg total) by mouth in the morning. 03/10/2023 Active pantoprazole (PROTONIX) 40 mg EC tablet Take 1 tablet (40 mg total) by mouth every morning before breakfast. 06/05/2024 Active insulin NPH and regular human (HumuLIN 70-30,NovoLIN 70-30) 100 unit/mL (70-30) injectionIndica tions:Type 2 diabetes mellitus with chronic kidney disease on chronic dialysis, with long-term current use of insulin ([facility] Inject 0.1 mL (10 Units total) under the skin nightly. 10/04/2024 Active FREESTYLE PETRA 14 DAY SENSOR kitIndications: Type 2 diabetes mellitus with chronic kidney disease on chronic dialysis, with long-term current use of insulin ([facility] Inject 1 Device under the skin continuously . 6 kit 3 12/27/2024 Active midodrine (PROAMATINE) 10 mg tablet Take 1 tablet (10 mg total) by mouth 3 (three) times a week. 11/21/2024 Active gabapentin (NEURONTIN) 300 mg capsuleIndicati ons:Chronic neck pain with history of cervical spinal surgery,Chronic left shoulder pain,Cervical spinal stenosis Take 1 capsule (300 mg total) by mouth 3 (three) times a day. 90 capsule 1 02/28/2025 Active HYDROcodone-lawrence taminophen (NORCO) 10-325 mg per tablet Take 1 tablet by mouth every 6 (six) hours as needed for pain. Active Active Problems Problem Noted Date Diagnosed Date Intervertebral disc stenosis of neural canal of cervical region 03/26/2025 Rectal mass 07/25/2024 Chronic left shoulder pain 07/25/2024 Stage II pressure ulcer of left buttock 05/06/20 23 Gluteal abscess 04/18/2023 End stage renal disease 12/23/2020 Overview (12/23/2020): Added automatically from request for surgery [id number] Hyperlipidemia 11/04/2020 care home current use of insulin 11/04/2020 Neuropathy 11/04/2020 Proteinuria 11/04/2020 Ptosis of eyelid 11/04/2020 Overview (11/04/2020): right Total right oculomotor nerve palsy 11/04/2020 Nephropathy due to secondary diabetes mellitus 0 11/04/2020 Diabetic renal disease 11/04/2020 Conjunctivitis 10/29/2020 ESRD on dialysis 10/29/2020 Essential hypertension 10/29/2020 Glaucoma 10/28/2020 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 This is due to the encroachment of hte overlying suprapubic fat pad. I told him a plastic surgeon could do abdominal plasty to remove this but htat his penile length appears normal with retractioin of the skin Erectile dysfunction 09/02/2020 Overview (09/02/2020): 09/02/20: Erectile dysfunction. Plan trial of sildenafil 100 mg. Use and contraindications discussed. Hematuria, microscopic 09/02/2020 Overview (09/02/2020): 09/02/20: Microhematuria - plan to recheck when returns and pursue further wokrup if persistent Severe obesity (BMI 35.0-39.9) with comorbidity 08/26/2020 Anemia, chronic disease 10/26/2019 S/P unilateral BKA (below knee amputation) 07/15 DM (diabetes mellitus) with peripheral vascular complication 08/27/2016 PAD (peripheral artery disease) 08/27/2016 Normocytic anemia 12/17/2014 Overview (04/07/2017): Overview: ICD-10 Go-Live Type 2 diabetes mellitus wit h chronic kidney disease on chronic dialysis, with long-term current use of insulin 09/20/2014 Peripheral arterial occlusive disease Resolved Problems Problem Noted Date Diagnosed Date Resolved Date Ischemic ulcer 09/20/2014 11/04/2020 Encounters Date Type Department Care Team Description 04/15/2025 Travel 04/05/2025 1:06 PM EDT - 04/05/2025 1:15 PM EDT Surgery [facility] [address] [place] [address] Edgard Uriostegui MD INJECTION SPINE TRANSFORAMINAL Left C 5,6 Nroot [79063 (CPT )] 04/05/2025 12:30 PM EDT Anesthesia Event [facility] [address] [place] [address] Barber Reece MD Stull, Cyle, APRN-ELECTRIC ARC FURNACE OPERATOR 04/05/2025 12:08 PM EDT - 04/05/2025 11:59 PM EDT Hospital Encounter [facility] [address] [place] [address] Edgard Uriostegui MD Discharge Disposition: Home 04/05/2025 9:45 AM EDT - 04/05/2025 12:07 PM EDT Hospital Encounter [facility] [address] [place] [address] Edgard Uriostegui MD Intervertebral disc stenosis of neural canal of cervical region Discharge Disposition: Home 03/26/2025 10:00 AM EDT Office Visit [facility] [address] [place] [address] Jam Lyons, PA Intervertebral disc stenosis of neural canal of cervical region (Primary Dx); Chronic neck pain with history of cervical spinal surgery; Cervical spinal stenosis; Bulge of cervical disc without myelopathy 03/26/2025 Travel 03/18/2025 Travel 02/28/2025 10:40 AM EDT Office Visit [facility] [address] [place] [address] [place] [address] Litzy Alamo APRN-DIABETES EDUCATOR Chronic neck pain with history of cervical spinal surgery (Primary Dx); Chronic left shoulder pain; Cervical spinal stenosis; Bulge of cervical disc without myelopathy 02/28/2025 Travel 02/12/2025 Refill [facility] [address] [place] [address] [place] [address] Olimpia Cortes CMA Nephropathy due to secondary diabetes mellitus ([facility]) 02/11/2025 [facility]phone [facility] [address] [place] [address] [place] [address] Litzy Alamo APRN-DIABETES EDUCATOR 02/08/2025 6:25 PM EDT - 02/08/2025 11:59 PM EDT Hospital Encounter [facility] [address] [place] [address] Diagnosis unknown (Primary Dx) Discharge Disposition: Home 02/07/2025 12:13 PM EDT - 02/07/2025 11:59 PM EDT Hospital Encounter [facility] [address] [place] [address] Chronic neck pain with history of cervical spinal surgery Discharge Disposition: Home 02/07/2025 Travel 02/06/2025 8:29 PM EDT - 02/06/2025 11:59 PM EDT Hospital Encounter [facility] [address] [place] [address] End stage renal disease (CMS-HCC) (Primary Dx); Dependence on renal dialysis Discharge Disposition: Home from Last 3 Months Family History Medical History Relation Name Comments Diabetes Father Heart disease Father Diabetes Mother Heart disease Mother Relation Name Status Comments Father Mother Social History Tobacco Use Types Packs/Day Years Used Date Smoking Tobacco: Light Smoker Cigarettes Smokeless Tobacco: Never Tobacco Cessation:Ready to Q uit: Not Asked; Counseling Given: Not Answered Comments:1x per week Alcohol Use Standard Drinks/Week [...] got money to buy more. Never True 03/26/2025 Within the past 12 months th e food we bought just didn't last and we didn't have money to get more. Never True 03/26/2025 Purpose - Life Answer Date Recorded I have a purpose and direction in my life. Stron gly Agree 01/01/2021 Sex and Gender Information Value Date Recorded Sex Assigned at Not on file Legal Sex Male 11:26 AM EDT Gender Identity Not on file Sexual Orientation Not on file Last Filed Vital Signs Vital Sign Reading Time Taken Comments Blood Pressure 181/87 04/05/2025 12:42 PM EDT Pulse 71 04/05/2025 12:42 PM EDT Temperature 36.9 C (98.5 F) 04/05/2025 12:20 PM EDT Respiratory Rate 18 04/05/2025 12:42 PM EDT Oxygen Saturation 98% 04/05/2025 12:42 PM EDT Inhaled Oxygen Concentration - - Weight 93.9 kg (207 lb) 03/26/2025 10:00 AM EDT Height 177.8 cm (5' 10 ) 03/26/2025 10:00 AM EDT Body Mass Index 29.7 03/26/2025 10:00 AM EDT Plan of Treatment Upcoming Encounters Date Type Department Care Team (Late st Contact Info) Description 05/09/2025 11:10 AM EDT Office Visit [facility] [address] [facility] [address] [place] [phone] Rayshawn Gibbons, DO [address] [place] [address] 05/24/2025 11:00 AM EDT Office Visit [facility] [address] [facility] [place] [address] Litzy Alamo APRN-SUSHANT [address] [place], [facility] [place] [address] Health Maintenance Due Date Last Done Comments Diabetic Ophthalmology Exam 1955 Medicare Annual Wellness Visit 1957 Tobacco Counseling 1957 Adult BMI Follow Up Plan 1975 Diabetic Foot Exam 1975 Zoster (Shingles) Vaccine (1 of 2) 2007 DTaP,Tdap and Td Vaccines (2 - Td or Tdap) 02/19/2022 02/20/2012 Abdominal Aortic Aneurysm (A AA) Screen 2022 Fall Risk Screening 2022 COVID-19 Vaccine (3 - 2023-2 5 season) 2024 08/08/2021, 07/09/2021 Influenza Vaccine 06/17/2025 07/09/2021, , 07/16/2019, Additional history exists Depression Screening 07/23/2025 07/23/2024 Adult BMI Screening 03/26/2026 03/26/2025 Tobacco Screening 04/05/2026 04/05/2025 Goals Goal Patient Goal Type Associated Problems Recent Progress Patient-Stated? Author <enter goal here> General Yes Paula Albarado LISW Note: Evaluation of progress towards goal: Discharge home with home care. Medical Devices Implanted Type Area Funeral Planner Device Identifier Shelf Expiration Date Model / Serial / Lot [place] Sut 4.75mm Bio-Swivelock C Cls Eylt Vnt 19.1mm Strl Ea=Bill-Only Rpl [id number] - Sna - [id number] Implanted:Qty: 2 on 06/02/2023 by Roberto Carlos Valenzuela MD at [facility] [place] Left: Shoulder Arthrex 10/16/2025 [id number] C / NA / [id number] Drain Glcm Thk.9mm Blnt Tpr Ahmed Flxb Plt Adeola [id number] .635 - [id number] - [id number] Implanted:Qty: 1 on 06/18/2021 by Hunter Man MD at [facility] Other Implant [employer] 03/06/2023 FP7 / [id number] / [id number] Procedures Procedure Name Priority Date/Time Associated Diagnosis Comments FL FLUOROSCOPY UP TO 1 HOUR Routine 04/05/2025 12:37 PM EDT Intervertebral disc stenosis of neural canal of cervical region ND INJECT ANES/STEROID FORAMEN CERV/THORACIC W IMG GUIDE ,1 LEVEL 04/05/2025 12:30 PM EDT Intervertebral disc stenosis of neural canal of cervical region Special Needs Diabetic, Petra, ESRD - dialysis until 10 No BP/IV Left Arm BEDSIDE GLUCOSE Routine 04/05/2025 12:20 PM EDT BUN Routine 02/08/2025 9:20 AM EDT Diagnosis unknown BUN Routine 02/08/2025 5:45 AM EDT Diagnosis unknown MR CERVICAL SPINE WO CONT Routine 02/07/2025 12:56 PM EDT Chronic neck pain with history of cervical spinal surgery ALBUMIN Routine 02/06/2025 5:48 AM EDT End stage renal disease ([facility]) Dependence on renal dialysis CALCIUM Routine 02/06/2025 5:48 AM EDT End stage renal disease ([facility]) Dependence on renal dialysis HEMOGLOBIN Routine 02/06/2025 5:48 AM EDT End stage renal disease ([facility]) Dependence on renal dialysis POTASSIUM Routine 02/06/2025 5:48 AM EDT End stage renal disease ([facility]) Dependence on renal dialysis PHOSPHORUS Routine 02/06/2025 5:48 AM EDT End stage renal disease ([facility]) Dependence on renal dialysis PARATHYROID HORMOME, INTACT Routine 02/06/2025 5:48 AM EDT End stage renal disease ([facility]) Dependence on renal dialysis HEPATITIS C(HCV) ANTIBODY W/REFLEX TO PCR Routine 02/06/2025 5:48 AM EDT End stage renal disease ([facility]) Dependence on renal dialysis from Last 3 Months Results * Fluoroscopy less than one hour (04/05/2025 12:37 PM EDT) Narrative SYSTEMGENERATED, DOCUMENTATION - 04/05/2025 12:37 PM EDT No Reading Required. This procedure does not require a formal dictation. Non-Radiologist provider performed procedures can be reviewed under Post-Op, Procedure or Progress notes. For full report details, please reach out to your physician. Effective 03/03/2021 this image will be visible to you in MyChart. us Edgard Uriostegui MD IMG FLUOROSCOPY ORDERABLES Fi nal Result * Bedside Glucose *Place/Obtain serum glucose if >500 per glucometer. (04/05/2025 12:20 PM EDT) Bedside Glucose (POC) 96 65 - 99 mg/dL 04/05/2025 12:28 PM EDT [facility] Blood specimen (specimen) 04/05/2025 12:20 PM EDT 04/05/2025 12:28 PM EDT us Edgard Uriostegui MD POINT OF CARE TEST ORDERABLES Final Result [facility] [address] [place] [address], [place] * BUN (02/08/2025 9:20 AM EDT) Only the most recent of2 resultswithin the time period is included. BUN 8 5 - 27 mg/dL 02/08/2025 8:47 PM EDT [facility] PLASMA 02/08/2025 9:20 AM EDT 02/08/2025 7:53 PM EDT us Sachin Hernandez MD LAB BLOOD ORDERABLES Final Res ult SUNPAM [facility] [address] [facility] [address] [place] [address] * MR cervical spine without contrast (02/07/2025 12:56 PM EDT) Anatomical Region Laterality Modality MSK, Neuro, Spine, C-spine, Spine Covera N/A Magnetic Resonance 02/12/2025 3:26 PM EDT Narrative 02/12/2025 3:30 PM EDT MR CERVICAL SPINE WO CONT CLINICAL INFORMATION: Chronic neck pain with history of cervical spinal surgery . COMPARISON: 01/31/2018. PROCEDURE: Routine MRI cervical spine obtained without contrast. Multisequence, multiplanar imaging was obtained. FINDINGS: Mild loss of the normal cervical lordosis. Postoperative changes with prior C3- C6 laminectomy. Modic type I endplate changes present at C5-6. No acute fracture. No prevertebral soft tissue swelling. No definite signal abnormalities within the cervical spinal cord. Postoperative changes in the posterior soft tissues. No fluid collection. Mild proliferative changes adjacent to the odontoid process. C2-3: Disc bulge with a right paracentral disc protrusion measuring about 3 mm with likely effacement of the anterior cervical nerve roots at this level. Moderate canal stenosis. Moderate right neural foraminal narrowing. C3-4: Disc bulge with a central and left paracentral protrusion effacing the anterior thecal sac on the left. Facet degenerative changes. Moderate canal stenosis. Moderate bilateral neural foraminal narrowing. C4-5: Large circumferential disc bulge with central protrusion. Facet degenerative changes noted. Mild canal stenosis. Moderate neural foraminal narrowing. C5-6: Central disc protrusion effacing the thecal sac. Facet degenerative changes. Decompressed spinal canal. Moderate right and severe left-sided neural foraminal narrowing. C6-7: Circumferential disc bulge. Decompressed spinal canal. Facet degenerative changes. No canal stenosis. Severe bilateral neural foraminal narrowing. C7-T1: Disc bulge and facet degenerative changes. Moderate canal stenosis. Mild neural foraminal narrowing. IMPRESSION: * Severe multilevel degenerative changes most likely at C5-C6 with Modic type I endplate changes. Areas of canal stenosis and neural foraminal narrowing described above. * No definite signal abnormalities within the cervical spinal cord. Finalized by Jam Gracia MD on 02/12/2025 3:30 PM Procedure Note Jam Gracia MD - 02/12/2025 MR CERVICAL SPINE WO CONT CLINICAL INFORMATION: Chronic neck pain with history of cervical spinalsurgery . COMPARISON: 01/31/2018. PROCEDURE: Routine MRI cervical spine obtained without contrast. Multisequence,multiplanar imaging was obtained. FINDINGS: Mild loss of the normal cervical lordosis. Postoperative changes withprior C3-C6 laminectomy. Modic type I endplate changes present at C5-6. Noacute fracture. No prevertebral soft tissue swelling. No definite signalabnormalities within the cervical spinal cord. Postoperative changes inthe posterior soft tissues. No fluid collection. Mild proliferative changesadjacent to the odontoid process. C2-3: Disc bulge with a right paracentral disc protrusion measuring about3 mm with likely effacement of the anterior cervical nerve roots at thislevel. Moderate canal stenosis. Moderate right neural foraminalnarrowing. C3-4: Disc bulge with a central and left paracentral protrusion effacingthe anterior thecal sac on the left. Facet degenerative changes. Moderatecanal stenosis. Moderate bilateral neural foraminal narrowing. C4-5: Large circumferential disc bulge with central protrusion. Facetdegenerative changes noted. Mild canal stenosis. Moderate neural foraminalnarrowing. C5-6: Central disc protrusion effacing the thecal sac. Facet degenerativechanges. Decompressed spinal canal. Moderate right and severe left-sidedneural foraminal narrowing. C6-7: Circumferential disc bulge. Decompressed spinal canal. Facetdegenerative changes. No canal stenosis. Severe bilateral neural foraminalnarrowing. C7-T1: Disc bulge and facet degenerative changes. Moderate canal stenosis.Mild neural foraminal narrowing. IMPRESSION: * Severe multilevel degenerative changes most likely at C5-C6 with Modictype I endplate changes. Areas of canal stenosis and neural foraminalnarrowing described above. * No definite signal abnormalities within the cervical spinal cord. Finalized by Jam Gracia MD on 02/12/2025 3:30 PM Litzy Alamo WOODWORK SALVAGE INSPECTOR-DIABETES EDUCATOR IMG MRI ORDERABLES Grace l Result * Parathyroid Hormone, intact (02/06/2025 5:48 AM EDT) Pathologist [facility] PTH 77 12 - 88 pg/mL 02/06/2025 11:00 PM EDT [facility] 02/06/2025 5:48 AM EDT 02/06/2025 8:36 PM EDT us Not In System Ref Prov LAB BLOOD ORDERABLES Edit ed Result - Final [facility] [address] [facility] [place] [address] * Hepatitis C(HCV) Ab w/ Reflex to PCR (02/06/2025 5:48 AM EDT) Anti HCV w/ PCR reflex Non-Reacti ve Non-Reacti ve^Non-[place] ctive 02/07/2025 11:43 AM EDT [facility] Comment: NEW TEST METHOD NOTE If recent infection suspected, recommend repeat testing (>2 months). Ymqjoq-do-azjguu ratio is <1.00. Serum / Unknown 02/06/2025 5 :48 AM EDT 02/06/2025 8:36 PM EDT us Not In System Ref Prov LAB BLOOD ORDERABLES Grace l Result [facility] [address] [place] [address], [address] [place] [address] * (ABNORMAL) Hemoglobin (02/06/2025 5:48 AM EDT) [facility] Hemoglobin 9.5(L) 13.0 - 17.0 g/dL 02/06/2025 9:35 PM EDT [facility] Blood / Unknown 02/06/2025 5 :48 AM EDT 02/06/2025 8:36 PM EDT us Not In System Ref Prov LAB BLOOD ORDERABLES Edit ed Result - Final Performing Organization Address City/[facility]/ZIP Co de Phone Number [facility] [address] [place] [phone] * (ABNORMAL) Potassium (02/06/2025 5:48 AM EDT) [facility] Potassium, Bld 3.2(L) 3.5 - 5.0 mmol/L 02/06/2025 9:42 PM EDT [facility] PLASMA 02/06/2025 5:48 AM EDT 02/06/2025 8:36 PM EDT us Not In System Ref Prov LAB BLOOD ORDERABLES Edit ed Result - Final Performing Organization Address City/[facility]/ZIP Co de Phone Number [facility] [address] [place] [address], [address] [place] [id number] * (ABNORMAL) Phosphorus (02/06/2025 5:48 AM EDT) Phosphorus 1.8(L) 2.4 - 4.9 mg/dL 02/06/2025 9:42 PM EDT [facility] 02/06/2025 5:48 AM EDT 02/06/2025 8:36 PM EDT us Not In System Ref Prov LAB BLOOD ORDERABLES Edit ed Result - Final [facility] [address] [place] [address], [facility] [address] [place] [address] * Calcium (02/06/2025 5:48 AM EDT) Calcium 8.5 8.5 - 10.5 mg/dL 02/06/2025 9:42 PM EDT [facility] 02/06/2025 5:48 AM EDT 02/06/2025 8:36 PM EDT us Not In System Ref Prov LAB BLOOD ORDERABLES Edit ed Result - Final Performing Organization Address [facility]/ZIP Co de Phone Number [address] [address] * Albumin (02/06/2025 5:48 AM EDT) Albumin 4.0 3.2 - 5.3 g/dL 02/06/2025 9:42 PM EDT [facility] 02/06/2025 5:48 AM EDT 02/06/2025 8:36 PM EDT us Not In System Ref Prov LAB BLOOD ORDERABLES Edit ed Result - Final Performing Organization Address [facility]/ZIP Co de Phone Number [address], [facility] [address] [place] [address] from Last 3 Months Insurance [place] Advance Directives * Full Code (Latest Code Status on File) Date Activated Date Inactivated Comments 04/18/2023 7:19 PM 04/19/2023 4:31 PM Care Teams Auditor In Charge Relationship Specialty Start Date End Date Litzy Alamo APRN-SUSHANT [address] [place] [phone] PCP - General Nurse Practitioner 07/23/24
--- OUTSIDE RECORDS SUMMARY | 2025-05-02 16:06 | XMS_ITS | Encounter Summary ---
Author Organization [facility] [employer] Creative Communication s tem Address [id number] [place] [address] Care Team Providers Care Brancher Name Role Phone Litzy Alamo JULIA-ORTHODONTIC LABORATORY TECHNICIAN Primary Care Provider Encounter Details Date Type Department Care Team (Late st Contact Info) Description 09/29/2020 Telephone [facility] [address] [place] [phone] Sanaz Palacios, JHONATAN Social History Tobacco Use Types Packs/Day Years Used Date Smoking Tobacco: Light Smoker Cigarettes Smokeless Tobacco: Never Alcohol Use Standard Drinks/Week Comments Yes 0 (1 standard drink = 0.6 oz pur e alcohol) Childcare Answer Date Recorded Childcare Unknown 03/28/2019 Employment Answer Date Recorded Employment Unknown 03/28/2019 Sex and Gender Information Value Date Recorded Sex Assigned at Not on file Legal Sex Male 11:26 AM EDT Gender Identity Not on file Sexual Orientation Not on file COVID-19 Exposure Response Date Recorded In the last month, have you been in contact with someone who was confirmed or suspected to have Coronavirus / COVID-19? No / Unsure 09/25/2020 11:43 AM EST documented as of this encounter Plan of Treatment Upcoming Encounters Date Type Department Care Team (Late st Contact Info) Description 05/09/2025 11:10 AM EDT [facility] [address] [place] [address] Rayshawn Gibbons, DO [address] [place] [address] 05/24/2025 11:00 AM EDT Office Visit [facility] [address] [place] [phone] Litzy Alamo APRN-CNP [address] [place] [phone] documented as of this encounter Visit Diagnoses Not on filedocumented in this encounter Care Teams Brancher Relationship Specialty Start Date End Date Litzy Alamo APRN-CNP [address] [place] [phone] PCP - General Nurse Practitioner 07/23/24 documented as of this encounter
--- OUTSIDE RECORDS SUMMARY | 2025-05-02 16:06 | XMS_ITS | Clinical Summary ---
Author Organization [facility] Address [address] [facility] [address], [address] [place] [address] Care Team Providers Care Retirement Specialist Name Role Phone Hunter Montes MD Primary Care Provider [phone] Allergies Active Allergy Reactions Criticality Noted Date Comments Oxycodone-Acetaminophen Nausea And Vomiting Low 09/2021 Sitagliptin 04/10/2018 Medications Sodium Hypochlorite 0.0125 % SOLN Apply to left great toe wound bid topical 1 Bottle 0 4 Active diazepam (VALIUM) 10 MG tablet 4 Active gabapentin (NEURONTIN) 600 MG tablet 600 mg 2 times daily. 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 09/20/2014 Type 2 diabetes mellitus wit h chronic kidney disease on chronic dialysis, with long-term current use of insulin 09/20/2014 Total right oculomotor nerve palsy Social History Tobacco Use Types Packs/Day Years Used Date Smoking Tobacco: Light Smoker Cigarettes Alcohol Use Standard Drinks/Week Comments No 0 (1 standard drink = 0.6 oz pur e alcohol) Sex and Gender Information Value Date Recorded Sex Assigned at Not on file Legal Sex Male 10:29 AM EST Gender Identity Not on file Sexual Orientation Not on file Last Filed Vital Signs Vital Sign Reading Time Taken Comments Blood Pressure 152/77 10/30/2020 12:30 PM EST Pulse 87 10/30/2020 12:30 PM EST Temperature 36.5 C (97.7 F) 10/30/2020 12:30 PM EST Respiratory Rate 17 10/30/2020 12:3 0 PM EST Oxygen Saturation 99% 10/30/2020 12: 30 PM EST Inhaled Oxygen Concentration - - Weight 109.9 kg (242 lb 4.6 oz) 10/29/2020 6:59 PM EST Height 177.8 cm (5' 10 ) 10/28/2020 9:29 PM EST Body Mass Index 34.76 10/28/2020 9:29 PM EST Plan of Treatment Not on file Insurance [employer] [place]IC[place] [address] MEDICARE Member Subscriber Plan / Payer (Ef fective 2025-Present) Name:Ryder Frost Relation to Subscriber:Self Name:Ryder Frost Payer ID:Not on file Group ID:[id number] Type:Not on file Address: [place] [phone] Advance Directives * Full Code (Latest Code Status on File) Date Activated Date Inactivated Comments 10/28/2020 11:21 PM 10/30/2020 4:23 PM Care Teams Retirement Specialist Relationship Specialty Start Date End Date Imm, Hunter Mahmood MD PCP - General 09/02/11
--- OUTSIDE RECORDS SUMMARY | 2025-05-02 16:06 | XMS_ITS | Encounter Summary ---
Author Organization [facility] Address [id number] [address] [place] [address] Care Team Providers Care Dialysis Biomed Technician Name Role Phone Litzy Alamo JULIA-ASSOCIATE PROFESSOR OF GEOGRAPHY Primary Care Provider Encounter Details Date Type Department Care Team (Late st Contact Info) Description 08/13/2020 Telephone [facility] [address] [place] [place] [phone] Yolette Matthews Social History Tobacco Use Types Packs/Day Years [...] on file documented as of this encounter Miscellaneous Notes * Telephone Encounter - Yolette Matthews - 08/13/2020 10:35 AM EDT LMOM FOR REFERRAL 08/13/2020 documented in this encounter Plan of Treatment Upcoming Encounters Date Type Department Care Team (Late st Contact Info) Description 05/09/2025 11:10 AM EDT Office Visit [facility] [address] [place] [address] Rayshawn Gibbons W, DO [address] [facility], [address] [place] [address] 05/24/2025 11:00 AM EDT Office Visit [facility] [address] [place] [phone] Litzy Alamo APRN-CNP [address] [place] [phone] documented as of this encounter Visit Diagnoses Not on filedocumented in this encounter Care Teams Dialysis Biomed Technician Relationship Specialty Start Date End Date Litzy Alamo APRN-CNP [address] [place] [phone] PCP - General Nurse Practitioner 07/23/24 documented as of this encounter
--- OUTSIDE RECORDS SUMMARY | 2025-05-02 16:07 | XMS_ITS | Encounter Summary ---
Author Organization [facility] Address [id number] [address] [place] [address] Care Team Providers Care Systems Project Manager Name Role Phone AlamoSuman reidra DUMONT-LABOR COMMISSIONER Primary Care Provider Encounter Details Date Type Department Care Team (Late st Contact Info) Description 07/31/2024 Telephone [facility] [address] [place] [address] [phone] Cristiana Smiley CMA Social History Tobacco Use Types Packs/Day [...] encounter Miscellaneous Notes * Telephone Encounter - Cristiana Smiley CMA - 07/31/2024 4:19 PM EDT Pharmacy called stating rx for his Evita needs resent. The original came through with two sets of instructions. Please advise? * Telephone Encounter - BRIGHT Galindo - 07/31/2024 4:19 PM EDT Rx sent. Thank you. documented in this encounter Plan of Treatment Upcoming Encounters Date Type Department Care Team (Late st Contact Info) Description 05/09/2025 11:10 AM EDT Office Visit [facility] [address] [facility] [address] [place] [phone] Rayshawn Gibbons, DO [address] [place] [address], [address] [place] [address] 05/24/2025 11:00 AM EDT Office Visit [facility] [address] [place] [address] Litzy Alamo APRN-CNP [address], [place] [address] documented as of this encounter Goals [...] documented as of this encounter Care Teams Systems Project Manager Relationship Specialty Start Date End Date Litzy Alamo APRN-LABOR COMMISSIONER [address] [place] [address], [place] [address] PCP - General Nurse Practitioner 07/23/24 documented as of this encounter
--- OUTSIDE RECORDS SUMMARY | 2025-05-02 16:07 | XMS_ITS | Patient Health Record ---
Author Organization [facility] [place] Address [address] [place] [address] Care Team Providers Care Budget Specialist Name Role Phone Hunter Montes MD Primary Care Provider Unavailabl e Results Component Value Reference Range Notes BUN Reviewed date:02/11/2025 10:20:06 AM Interpretation: Performing Lab:[facility]), [address] [place] [address] AVE[address] [place] [address]. [address] PH:[phone] Notes/Report: BLOOD UREA NITROGEN 8 5-27 mg/dL PERFORME D AT [address] [place] [address] BUN Reviewed date:02/11/2025 10:20:49 AM Interpretation: Performing Lab:[facility] ([facility]), [address] [place] [address] AVE[address] [place] [address]. [address] PH:[phone] Notes/Report: BLOOD UREA NITROGEN 31 5-27 mg/dL PERFORME D AT [address] [place] [address] Reason For Referral No Information Medications Medication SIG (Take, Route, Frequency, Duration) Notes Start Date End Date Status amLODIPine Besylate 5 MG 1 tablet Orally [...] Gabapentin 600 mg 1 tablet TID Unknown NovoLOG Mix 70/30 (70-30) 100 UNIT/ML as directed Subcutaneous 42 units BID Unknown Percocet 325 mg-5 mg 1 tablet TID Unknown Simvastatin 10 mg 1 tablet DAILY Unknown Vitamin B 12 100 MCG as directed Orally Daily Unknown Xphozah 30 MG TAKE ONE TABLET BY MOUTH TWICE A DAY for 30 Unknown amLODIPine Besylate 2.5 MG 1 tablet Orally Once a day for 30 Unknown Social History Tobacco Use: Social History Observation Description Date Details (start date - stop date) Light tobacco s moker NA - NA Tobacco Use/Smoking Question Answer Notes Patient is a light tobacco smoker Problems Problem Type SNOMED Code ICD Code Onset Dates Problem Status W/U Status Risk Notes Problem 3434313 Diabetes 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 (E08.22) Active confirmed Problem 189584507 Arteriovenous fistula, acquired (I77.0) Active confirmed Problem 562174556 Chronic kidney disease, stage 4 (severe) (N18.4) Active confirmed Problem 990031138 Chronic kidney disease, stage 5 (N18.5) Active confirmed Problem 92184738 End stage renal disease (N18.6) Active confirmed Problem 154989079 Chronic kidney disease, stage III (moderate) (N18.3) Active confirmed Problem 42852153 Proteinuria (R80.9) Active confirmed Problem 09037675 Essential hypertension (I10) Active confirmed Problem 378827888 Chronic kidney disease, stage IV (severe) (N18.4) Active confirmed Problem 782514398 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 (Z79.4) Active confirmed Problem 54310999 End-stage renal disease (N18.6) Active confirmed Problem Chronic kidney disease (CKD) stage G5/A1, glomerular filtration rate (GFR) less than or equal to 15 mL/min/1.73 square meter and albuminuria creatinine ratio less than 30 mg/g (N18.5) Active confirmed Problem 48604553 Chronic kidney disease in type 2 diabetes mellitus (E11.22) Active confirmed Problem 53736908 DM (diabetes mellitus) type I controlled, peripheral vascular disorder (E10.51) Active confirmed Problem 456253945 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, implants and grafts, 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) Active confirmed Problem Chronic kidney disease stage 3 (disorder) (076765294) Chronic kidney disease, stage 3 unspecified (N18.30) Active confirmed Plan Of Treatment Pending Test Test Name Order Date UA (URINALYSIS, COMPLETE) 08/09/2016 ALBUMIN, BLOOD 03/29/2016 ALBUMIN, BLOOD 08/09/2016 ALBUMIN, BLOOD 12/13/2016 ALBUMIN, BLOOD 04/09/2019 FERRITIN 04/09/2019 MAGNESIUM 04/09/2019 MAGNESIUM 12/13/2016 MAGNESIUM 08/09/2016 IRON AND TIBC (WITH SAT) 04/09/2019 CBC NO DIFF 04/09/2019 CBC NO DIFF 08/09/2016 CBC NO DIFF 12/13/2016 CBC NO DIFF 03/29/2016 BMP (BASIC MET PANEL - W/GFR) 03/29/2016 BMP (BASIC MET PANEL - W/GFR) 08/09/2016 BMP (BASIC MET PANEL - W/GFR) 12/13/2016 BMP (BASIC MET PANEL - W/GFR) 04/09/2019 BMP (BASIC MET PANEL - W/GFR) 09/08/2020 UA (REFLEX URINALYSIS TO CULTURE) 2019 MICROALBUMIN with ALB/CREAT RATIO, URINE (MALB)) 08/09/2016 PHOSPHORUS 12/13/2016 PHOSPHORUS 08/09/2016 PTH INTACT (PARATHYROID HORMONE) 016 URIC ACID 03/29/2016 URIC ACID 12/13/2016 VITAMIN D, 25 LEVEL (TOTAL) 03/29/2016 VITAMIN D, 25 LEVEL (TOTAL) 08/09/2016 VITAMIN D, 25 LEVEL (TOTAL) 04/09/2019 VITAMIN D, 25 LEVEL (TOTAL) 09/08/2020 PTH INTACT 09/08/2020 CBC 09/08/2020 B12 AND FOLATE ([facility]) 04/09/2019 Microalbumin - Albumin/Creatinine Ratio Urine 09/08/2020 TAPE DECK INSTALLER of Access Fistulogram 02/23/2022 Future Test Test Name Order Date BMP (BASIC MET PANEL - W/GFR) 12/09/2020 UA (REFLEX URINALYSIS TO CULTURE) 2020 ALBUMIN 12/09/2020 VIT D 25OH TOT 12/09/2020 PTH INTACT 12/09/2020 PHOS 12/09/2020 CBC 12/09/2020 Microalbumin - Albumin/Creatinine Ratio Urine 12/09/2020 Insurance Providers Payer Name Payer Address Payer Phone Subscriber Number Group Number Insured Name Patient Relationship to Insured Coverage Start Date Coverage End Date [employer] MED[employer]LUE DUAL ADV PRIMARY MEDICARE [address] [place] [address] [phone] [id number] [facility] 0 Ryder Frost Self - patient is the insured 8 MEDICAID [place] 2ND INS [address] OFFICE OF [place], [place] [id number] Ryder Frost Self - patient is the insured Medical (General) History Medical History History ICD Code History of diabetes mellitus Surgical History Surgery Date(Month/Year) Surgical / procedural history Eye surgery- diabetic retinopathy Back, neck and Rt foot amputation
--- OUTSIDE RECORDS SUMMARY | 2025-05-02 16:08 | XMS_ITS | Encounter Summary ---
Author Organization [facility] Address [address] [place] [address] Care Team Providers Care Sales And Marketing Assistant Name Role Phone Hunter Montes MD Primary Care Provider [phone] Litzy Alamo [facility] Primary Care Provid er Source Comments In the event this information is protected by the Federal Confidentiality of Alcohol and Drug AbusePatient Records regulations: The Federal rules restrict any use of the information to criminally investigate or prosecute any alcohol or drug abuse patient.[facility] Encounter Details Date Type Department Care Team (Late st Contact Info) Description 07/02/2024 GI Preprocedure Call [facility] Surgery [address] [place] [address] [place] [address] [place] [address] Social History Tobacco Use Types Packs/Day Years Used Date Smoking Tobacco: Light Smoker Smokeless Tobacco: Never Alcohol Use Standard Drinks/Week Comments No 0 (1 standard drink = 0.6 oz pur e alcohol) Area Deprivation Index Answer Date Geovany rded National Score (1-100), lower number is lower ri 88 06/29/2024 State Score (1-10), lower number is lower risk 8 06/29/2024 Data from: https://www.neighborhoodatlas.[facility]/. Last [address] used for calculation [address] [facility] 06/29/[address]24 Sex and Gender Information Value Date Recorded Sex Assigned at Not on file Legal Sex Male 10:32 AM EST Gender Identity Not on file Sexual Orientation Not on file documented as of this encounter Functional Status * Are you deaf or do you have serious difficulty hearing? Answer Date of Assessment Author No 02/25/2015 1:50 PM EDT Ac Poole * Are you blind or do you have serious difficulty seeing, even when wearing glasses? Answer Date of Assessment Author No 02/25/2015 1:50 PM EDT Ac Poole * Do you have serious difficulty walking or climbing stairs? Answer Date of Assessment Author No 02/25/2015 1:50 PM EDT Ac Poole * Do you have difficulty dressing or bathing? Answer Date of Assessment Author No 02/25/2015 1:50 PM EDT Ac Poole * Because of a physical, mental, or emotional condition, do you have difficulty doing errands alone such as visiting a doctor's office or shopping? Answer Date of Assessment Author No 02/25/2015 1:50 PM EDT Ac Poole documented as of this encounter Mental Status * Because of a physical, mental, or emotional condition, do you have serious difficulty concentrating, remembering, or making decisions? Answer Entry Date Author No 02/25/2015 1:50 PM EDT Ac Poole documented in this encounter Plan of Treatment Upcoming Encounters Date Type Department Care Team (Late st Contact Info) Description 07/02/2025 1:45 PM EDT Appointment Procedures [address] [place] [address] [place] [address] [place] [address] Encounter for follow-up surveillance of rectal cancer [Z08, Z85.048] documented as of this encounter Visit Diagnoses Not on filedocumented in this encounter Care Teams Sales And Marketing Assistant Relationship Specialty Start Date End Date Hunter Montes MD PCP - General Family Medicine 12/11/14 07/08/24 Litzy Alamo, SUSHANT [address] [place] [address] PCP - General Family Medicine 07/09/24 documented as of this encounter
--- OUTSIDE RECORDS SUMMARY | 2025-05-02 16:08 | XMS_ITS | Encounter Summary ---
Author Organization [facility] Address [address] [place] [address] Care Team Providers Care Vp Clinical Name Role Phone Litzy Alamo [facility] Primary Care Provid er Source Comments In the event this information is protected by the Federal Confidentiality of Alcohol and Drug AbusePatient Records regulations: The Federal rules restrict any use of the information to criminally investigate or prosecute any alcohol or drug abuse patient.[facility] Encounter Details Date Type Department Care Team (Late st Contact Info) Description 04/22/2025 Telephone General Surgery [address] [place], [place] [phone] [place] [address] [place] [address] Social History Tobacco Use Types Packs/Day Years [...] is lower risk 8 09/06/2024 Data from: https://www.neighborhoodatlas.[facility]/. Last address used for calculation [address] [...] No 02/25/2015 1:50 PM EDT Ac Poole iscalista * Do you have serious difficulty walking [...] Description 07/02/2025 1:45 PM EDT Appointment Procedures [address] [place] [address] [place] [address] [place] [address] Encounter for follow-up surveillance of rectal cancer [Z08, Z85.048] documented as of this encounter Visit Diagnoses Not on filedocumented in this encounter Care Teams Vp Clinical Relationship Specialty Start Date End Date Litzy Alamo CNP [address] [place] [phone] PCP - General Family Medicine 07/09/24 documented as of this encounter
--- OUTSIDE RECORDS SUMMARY | 2025-05-02 16:08 | XMS_ITS | Encounter Summary ---
Author Organization [facility] Address [address] [place] [address] Care Team Providers Care Production Pattern Maker Name Role Phone Hunter Montes MD Primary Care Provider [phone] Litzy Alamo [facility] Primary Care Provid er Source Comments In the event this information is protected by the Federal Confidentiality of Alcohol and Drug AbusePatient Records regulations: The Federal rules restrict any use of the information to criminally investigate or prosecute any alcohol or drug abuse patient.[facility] Encounter Details Date Type Department Care Team (Late st Contact Info) Description 06/29/2024 Patient Msg Colorectal Surgery [address] [place], [place] [phone] [place] [address] [place] [address] Social History Tobacco Use Types Packs/Day Years Used Date Smoking Tobacco: Light Smoker Smokeless Tobacco: Never Alcohol Use Standard Drinks/Week Comments No 0 (1 standard drink = 0.6 oz pur e alcohol) Area Deprivation Index Answer Date Geovany rded National Score (1-100), lower number is lower ri sk 88 06/29/2024 State Score (1-10), lower number is lower risk 8 06/29/2024 Data from: https://www.neighborhoodatlas.[facility]/. Last address used for calculation [address] 06/29/2024 Sex and Gender Information Value Date Recorded Sex Assigned at Not on file Legal Sex Male 10:32 AM EST Gender Identity Not on file Sexual Orientation Not on file documented as of this encounter Functional Status * Are you deaf or do you have serious difficulty hearing? Answer Date of Assessment Author No 02/25/2015 1:50 PM EDT Ac Poole iscalista * Are you blind or do you have serious difficulty seeing, even when wearing glasses? Answer Date of Assessment Author No 02/25/2015 1:50 PM EDT Ac Poole ise * Do you have serious difficulty walking or climbing stairs? Answer Date of Assessment Author No 02/25/2015 1:50 PM EDT Ac Poole ise * Do you have difficulty dressing or bathing? Answer Date of Assessment Author No 02/25/2015 1:50 PM EDT Ac Poole ise * Because of a physical, mental, or [...] Description 07/02/2025 1:45 PM EDT Appointment Procedures [address] [place] [address] [place] [address] [place] [address] Encounter for follow-up surveillance of rectal cancer [Z08, Z85.048] documented as of this encounter Visit Diagnoses Not on filedocumented in this encounter Care Teams Production Pattern Maker Relationship Specialty Start Date End Date Hunter Montes MD PCP - General Family Medicine 2/25/15 9/22/24 Litzy Alamo, SUSHANT [address] [place] [phone] PCP - General Family Medicine 07/09/24 documented as of this encounter
--- OUTSIDE RECORDS SUMMARY | 2025-05-02 16:08 | XMS_ITS | Patient Health Record ---
Author Organization [facility] Address [address], [place] [address] Care Team Providers Care Frame Stripper And Crusher Name Role Phone Dora Toney Primary Care Provider Deisy Clement Unavailable [phone] Ida Olivas Unavailable [phone] Allergies Allergen (clinical drug ingredient) Drug/Non Drug Allergy documented on EMR Reaction Allergy Type Onset Date Status sitagliptin Januvia Comments: Gastritis and Gas problems Drug Allergy Active acetaminophen / oxycodone Percocet Nausea Comments: upset stomach Drug Allergy Active Results Component Value Reference Range Notes UDS Colonoscopy Reviewed date:07/02/2024 08:16:19 AM Interpretation:Normal Performing Lab: Notes/Report: Normal Reason For Referral No Information Medications Medication SIG (Take, Route, Frequency, Duration) Notes Start Date End Date Status Pen [place] 32G X 4 MM as directed twice [...] a day for 30 days 11/12/2021 Active rOPINIRole HCl 0.25 MG TAKE 1 TABLET BY MOUTH ONCE DAILY Oral for 30 Active HYDROcodone-Acetami nophen 5-325 MG 2 tablet as needed on dialysis days Orally three times weekly for 30 days OARRS reviewed without issue. 12/14/2023 Not-Taking Blood Glucose Test - 1 Strip Used Twice daily to check sugar -whatever brand insurance covers Active Gabapentin 100 MG 2 capsules in the morning, 1 capsule in the evening. Orally as directed for 30 days OARRS reviewed without issue Active Lancets - 1 Lancet Used Twice daily to check blood sugar -whatever brand insurance covers Active FreeStyle Petra 14 Day Sensor - APPLY 1 SENSOR TO THE BACK OF THE ARM, ONCE EVERY 14 DAYS. for 84 days 6 sensors Active Blood Glucose Meter 1 Meter. Given 1 time. Used daily to check blood sugars -whatever brand insurance covers Active Calcium Acetate (Phos Binder) 667 MG 2 capsules with meals Orally Three times a day for 30 days Active Pantoprazole Sodium 40 MG 1 tablet Orally Once a day for 30 days Active Vitamin D3 50 MCG (1999 UT) TAKE 1 CAPSULE BY MOUTH ONCE DAILY Oral for 30 Days Active Immunizations Vaccine Route Administration Date Status Comme nts Influenza (split), 3 yrs and above OTH Other/Miscella neous 11/04/2013 Administered Status:Complete ,Reason:Given or N/A Influenza (split), 3 yrs and above OTH Other/Miscella neous 07/16/2019 Administered Status:Complete ,Reason:Given or N/A Influenza, quadrivalent (IIV4), split virus, 6-35 months dosage OTH Other/Miscella neous 07/12/2020 Administered Status:Complete ,Reason:Given or N/A Influenza, quadrivalent, split, preservative free, 3 years or older OTH Other/Miscella neous 08/23/2017 Administered Status:Complete ,Reason:Given or N/A ,see scanned document Influenza, quadrivalent, split, preservative free, 3 years or older OTH Other/Miscella neous 07/31/2018 Administered Status:Complete ,Reason:Given or N/A ,see scanned document Social History Tobacco Use: Social History Observation Description Date Details (start date - stop date) Current Smoker 10/17/1969 - 03/17/2023 Sex Assigned At : Social History Observation Description Sex Assigned At Male Household Question Answer Notes Marital status: Number of adults in household: 3 Number of children in household: 2 Tobacco Use/Smoking Question Answer Notes Tobacco use: current smoker patient enter ed data When did you start smoking? 10/17/1969 p atient entered data When did you start smoking? 10/17/1967 p atient entered data How often do you smoke cigarettes? every day patient entered data When did you stop smoking? 03/17/2023 tushar sorto entered data How many cigarettes a day do you smoke? 6-10 patient entered data How soon after you wake up d o you smoke your first cigarette? 6-30 minutes patient entered tereso a Are you interested in quitting? Not ready to thomas t patient entered data How long has it been since y ou last smoked? 1-3 months patient entered data When did you start smoking? 10/17/1967 Additional Findings: Tobacco User Light cigarette smoker ((1-9 cigs/day) Alcohol Screen (Audit-C) Question Answer Notes Did you have a drink contain ing alcohol in the past year? Yes How often did you have a dri nk containing alcohol in the past year? Monthly or less (1 point) Points 1 Interpretation Negative CAGE-AID Questionnaire (2018 Edition) Question Answer Notes Have you ever felt that you ought to cut down on your drinking or drug use? No patient entered data Have people annoyed you by c riticizing your drinking or drug use? No patient entered data Have you ever felt bad or gu ilty about your drinking or drug use? No patient entered data Have you ever had a drink or used drugs first thing in the morning to steady your nerves or to get rid of a hangover? No patient entered data CAGE-AID Score 0 Interpretation Negative PRAPARE Question Answer Notes Date Completed/Updated: 11/07/2023 miracle nt entered data What is your current housing situation? I have housing patient entered data Are you worried about losing your housing? No patient entered data What is the highest level of school that you have finished? High school diploma or GED patient entered data What is your current work situation? Otherwise unemployed but not seeking work (ex. 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 Check all that apply I do not have problems meeting my needs Has lack of transportation k ept you from medical appointments, meetings, work or from getting things needed for daily living? No How often do you see or talk to people that you care about and feel close to? (For example: talking to friends on the phone, visiting friends or family, going to islam or club meetings) 3 to 5 times a week patient entered data How stressed are you? Stress is when someone feels tense, nervous, anxious, or can't sleep at night because their mind is troubled Not at all patient entered data In the past year have you sp ent more than 2 nights in a row in a fci, shelter, group home center, or juvenile correctional facility? No patient entered data Are you a refugee? No patient en tered data What country are you from? [place] tushar sorto entered data Do you feel physically and emotionally safe where you currently live? Yes patient entered data In the past year, have you b een afraid of your partner or ex-partner? 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) Active confirmed Problem Peripheral arterial disease (disorder) (177164154) Atherosclerotic peripheral vascular disease (I70.209) Active confirmed Problem Diabetic neuropathy (702411543) Diabetic neuropathy (E11.40) Active confirmed Problem End-stage renal disease (25470031) End-stage renal disease (N18.6) Active confirmed Problem Chronic pain syndrome (801335850) Chronic pain disorder (G89.4) Active confirmed Problem Type II diabetes mellitus without complication (027553323) Type 2 diabetes mellitus treated with insulin (E11.9) Active confirmed Problem Neuropathy (827455684) Neuropathy (G62.9) Active confirmed Problem Restless legs syndrome (25493733) Restless leg syndrome (G25.81) Active confirmed Problem [id number] Amputated right leg (S88.911A) Active confirmed Problem Hyperlipidemia (78526725) Hyperlipidemia (E78.5) Active confirmed Problem Hypertension (49980141) Hypertension (I10) Active confirmed Comment:BP inadvertently not repeated. 126/74 in January 2019. Will reevaluate at follow up appt later this month., Problem Autonomic neuropathy due to diabetes (73343702) Autonomic neuropathy due to diabetes (E11.43) Active confirmed Comment:needs diabetic shoes with inserts. neuropathy left great toe area and all the phalynxes. flat feet. callous of the 1st MP head., Encounters Encounter Location Date Provider Diagnosis [facility] [address] [place], [place] [phone] 05/08/2024 Deisy Clement [address] [place], [place] [phone] 05/09/2024 Dora Toney Main [address] [place], [place] [phone] 2024 Ida Brendon Plan Of Treatment Pending Test Test Name Order Date COVID19 (SARS-CoV-2, NA) (37271) 020 Insurance Providers Payer Name Payer Address Payer Phone Subscriber Number Group Number Insured Name Patient Relationship to Insured Coverage Start Date Coverage End Date [place] [employer] [address] [place] [address] [id number] [facility] [place] Frostel Self - patient is the insured 8 Medicaid [employer] [address] [place], [place] [id number] [place] Frostel Self - patient is the insured 2 Medical (General) History Medical History History ICD Code Abnormal presence of protein in urine R8 0.9 Anemia, unspecified D64.9 Atherosclerotic peripheral vascular dise ase I70.209 Cataract H26.9 Chronic low back pain M54.50 Chronic neck and back pain M54.2 Chronic pain disorder G89.4 End stage renal disease N18.6 History of constipation Z87.19 De Quervain's tenosynovitis, right M65.4 Type 2 diabetes mellitus treated with in sulin E11.9 Diabetic neuropathy E11.40 Elevated PSA R97.20 Heart murmur R01.1 Hyperlipidemia E78.5 Hypertension I10 Osteomyelitis, chronic M86.60 Peripheral autonomic neuropathy G90.9 Restless leg syndrome G25.81 History of adenomatous polyp of colon Z8 6.010 Surgical History Surgery Date(Month/Year) Amputation - R Leg Laser surgery - Bilateral Eyes Neck Surgery Back Surgery Multiple R Foot Debridements - X4 Hospitalization History Reason Date(Month/Year) Abscess on gluteus 2022 Shingles in eyes, sepsis 2019
--- OUTSIDE RECORDS SUMMARY | 2025-05-02 16:08 | XMS_ITS | Encounter Summary ---
Author Organization [facility] Address [address] [place] [address] Care Team Providers Care Wood Drill Operator Name Role Phone Litzy Alamo [facility] Primary Care Provid er Source Comments In the event this information is protected by the Federal Confidentiality of Alcohol and Drug AbusePatient Records regulations: The Federal rules restrict any use of the information to criminally investigate or prosecute any alcohol or drug abuse patient.[facility] Encounter Details Date Type Department Care Team (Late st Contact Info) Description 03/06/2025 Telephone Colorectal Surgery [facility] [address] [place], [place] [phone] [place] [address] [place] [address] Social History Tobacco Use Types Packs/Day Years [...] is lower risk 8 09/06/2024 Data from: https://www.neighborhoodatlas.[facility]/. Last address used for calculation [address] 09/06/2024 Sex and Gender Information Value [...] of Assessment Author No 02/25/2015 1:50 PM KAYLENT Ac Poole documented as of this encounter Mental Status * Because of a physical, mental, or emotional condition, do you have serious difficulty concentrating, remembering, or making decisions? Answer Entry Date Author No 02/25/2015 1:50 PM EDT Ac Poole documented in this encounter Miscellaneous Notes * Telephone Encounter - Anusha Pena RN - 04/25/2025 3:13 PM EDT Spoke with patient on phone. Scheduled him for sigmoidoscopy with Dr. Lauren on 07/02/25. He said he has dialysis on M, W, and his has dialysis on , , Sat so it is difficult for him to get a ride. We will put him at the end of the day on 07/02. He does not have My chart so asked that I mail him the instructions, which will be sent out today. Also reminded him he is due for an MRI rectum. Provided him with phone number to call to get it scheduled. He wanted the closest place to his home. * Telephone Encounter - Susan Field PSS - 04/22/2025 2:33 PM EDT Pt called to schedule a 6 month follow appt with Dr Lauren but can not do Fridays. Can I schedule ptfor a f/u in [place]? I do see you lvm to call and schedule other tests. Thank you, DAVID Carter * Telephone Encounter - Anusha Pena RN - 03/06/2025 3:05 PM EDT Called patient and left voice message telling him he is overdue for an MRI rectum and sigmoidoscopyas Dr. Lauren would like them done in January. As this is the third time I have called and left a message, I told him I won't bother him again and to please call our office at [phone] if he would like to schedule either of these things. documented in this encounter Plan of Treatment Upcoming Encounters Date Type Department Care Team (Late st Contact Info) Description 07/02/2025 1:45 PM EDT Appointment Procedures [address] [place] [address] [place] [address] [place] [address] Encounter for follow-up surveillance of rectal cancer [Z08, Z85.048] documented as of this encounter Visit Diagnoses Not on filedocumented in this encounter Care Teams Wood Drill Operator Relationship Specialty Start Date End Date Litzy Alamo CNP [address] [place] [phone] PCP - General Family Medicine 07/09/24 documented as of this encounter
--- OUTSIDE RECORDS SUMMARY | 2025-05-02 16:08 | XMS_ITS | Encounter Summary ---
Author Organization [facility] Address [facility] [place] [address] Care Team Providers Care Career Information Specialist Name Role Phone Hunter Montes MD Primary Care Provider [phone] Litzy Alamo [facility] Primary Care Provid er Source Comments In the event this information is protected by the Federal Confidentiality of Alcohol and Drug AbusePatient Records regulations: The Federal rules restrict any use of the information to criminally investigate or prosecute any alcohol or drug abuse patient.[facility] Encounter Details Date Type Department Care Team (Late st Contact Info) Description 06/26/2024 Lab Requisition [facility] [address] [place] [address] Turner Simeon MD [address] [place] [address] Person encountering health services to consult on behalf of another person Social History Tobacco Use Types Packs/Day Years Used Date Smoking Tobacco: Light Smoker Smokeless Tobacco: Never Alcohol Use Standard Drinks/Week Comments No 0 (1 standard drink = 0.6 oz pur e alcohol) Area Deprivation Index Answer Date Geovany rded National Score (1-100), lower number is lower ri 88 06/29/2024 State Score (1-10), lower number is lower risk 8 06/29/2024 Data from: https://www.neighborhoodatlas.[facility]/. Last address used for calculation [address] [facility] 06/29/2024 Sex and Gender Information Value Date [...] Description 07/02/2025 1:45 PM EDT Appointment Procedures [address] [place] [address] [place] [address] [place] [address] Encounter for follow-up surveillance of rectal cancer [Z08, Z85.048] documented as of this encounter Procedures Procedure Name Priority Date/Time Associated Diagnosis Comments SURGICAL PATHOLOGY REFERENCE LAB CONSULT Routine 06/26/2024 9:43 AM EDT Person encountering health services to consult on behalf of another person documented in this encounter Results * SURGICAL PATHOLOGY REFERENCE LAB CONSULT (06/26/2024 9:43 AM EDT) Case Report Surgical Pathology Report Case: [id number] Authorizing Provider: Turner Simeon MD Collected: 06/26/2024 09:43 AM Ordering Location: [facility] Received: 06/26/2024 09:42 AM [facility] Pathologist: Louis Rosales MD Specimen: Slide(s), 6 SLIDES, [id number] 06/29/2024 3:32 PM EDT [facility] FINAL DIAGNOSIS Rectal mass, biopsy (C1): - 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 06/29/2024 3:32 PM EDT [facility] at 1532 EDT Diagnosis Comment Thank you for allowing us the opportunity to review this case in consultation representing the rectal mass biopsy from a 69-year-old male. Histologic section from rectal mass (part C) shows adenomatous colonic mucosa with tubulovillous architecture. There is increases cytoarchitectural atypia, consistent with high-grade dysplasia. The biopsy fragments are relatively superficial, and there is no evidence of submucosal invasion in this biopsy. Clinical and radiographic correlation is suggested. Thank you for sending this case in consultation. Please do not hesitate to contact the GI Consultation Service at [phone] with questions or if additional follow up information becomes available. This case was reviewed in conjunction with the GI pathology fellow, Lora Lama M.D. 06/29/2024 3:32 PM EDT [facility] Clinical History CONSULT REQUESTED 06/29/2024 3:32 PM EDT [facility] Performing Lab Diagnostic interpretation performed at: [facility], [address] [place] [address], [address]IA[address] [id number] Fish Checker: Joe Cooper MD 06/29/2024 3:32 PM EDT [facility] Blocks or Slides MICROSCOPE SLIDE / Unknown 06/26/2024 9:43 AM EDT 06/26/2024 9:42 AM EDT [facility] Valentin Simeon MD SURGICAL PATHOLOGY Final Re sult [facility] [address] [facility] [address] [place] [address], documented in this encounter Visit Diagnoses Diagnosis Person encountering health services to consult on behalf of another person Other person consulting on behalf of another person documented in this encounter Care Teams Career Information Specialist Relationship Specialty Start Date End Date Imm, Hunter Sierra MD PCP - General Family Medicine 12/11/14 07/08/24 Litzy Alamo CNP [address] [place] [phone] PCP - General Family Medicine 07/09/24 documented as of this encounter
--- OUTSIDE RECORDS SUMMARY | 2025-05-02 16:09 | XMS_ITS | Encounter Summary ---
Author Organization [facility] Address [id number] [address] [place] [address] Care Team Providers Care Auditor In Charge Name Role Phone AlamoBritney reidmariluz DUMONT-PHOTOGRAPHIC PLATEMAKER Primary Care Provider Encounter Details Date Type Department Care Team (Late st Contact Info) Description 04/27/2022 Telephone [facility] [address] [place] [address] aRyshawn Gibbons, DO [address], [address] [place] [address] Social History Tobacco Use Types Packs/Day Years [...] have Coronavirus / COVID-19? No / Unsure 04/22/2022 11:16 AM EDT documented as of this encounter Miscellaneous Notes * Telephone Encounter - Gina Colmenares - 04/27/2022 2:09 PM EDT Patient is calling because he was referred back to prosthetics and he keeps saying [employer] - it sounds like 2 entities were supposed to be coordinating something for him and have not. He kept asking for you Delmi and said you know what's going on. If you have a moment, please give him a call at [phone]. I would not mind learning something, so please allow me to assist when I am able. Thank you. I did tell him you are with patients and may not get back to him today. He is aware. * Telephone Encounter - Delmi Porter CMA - 04/27/2022 2:09 PM EDT I had to wait for Dr Gibbons to sign his script, which he did today so I will be sending the order via fax tomorrow. Thanks documented in this encounter Plan of Treatment Upcoming Encounters Date Type Department Care Team (Late st Contact Info) Description 05/09/2025 11:10 AM EDT Office Visit [facility] [address] [phone] Rayshawn Gibbons, DO [address] [place] [address], [address] [place] [address] 05/24/2025 11:00 AM EDT Office Visit [facility] [address] [place] [address] Litzy Alamo APRN-CNP [address] [place] [address], [place] [address] documented as of this encounter Visit Diagnoses Not on filedocumented in this encounter Additional Health Concerns Assessment Noted Time PHQ-9 Depression Total Score: 0 01/02/20 21 3:05 PM EDT documented as of this encounter Care Teams Auditor In Charge Relationship Specialty Start Date End Date Litzy Alamo APRN-SUSHANT [address] [place] [address], [place] [address] PCP - General Nurse Practitioner 07/23/24 documented as of this encounter
--- NOTE | 2025-05-02 16:16 | ECG_ITS ---
[facility] Test Date: 2025-05-02 Pat Name: RAGHAV REGALADO Department: Room: - Gender: Male Senior Data Mining Analyst: : 1955 Requested By: 1030 Order Number: [id number] Reading MD: JEROD VELAZQUEZ Measurements Intervals [place] Rate: 71 P: 42 VT: 196 QRS: 10 QRSD: 92 T: 15 QT: 398 QTc: 420 Interpretive Statements 1100 Sinus rhythm 3414 Cannot rule out septal myocardial infarction, age undetermined 5222 Moderate voltage criteria for LVH, may be normal variant 9150 abnormal ECG No previous ECG available for comparison Electronically Signed On 05-03-2025 10:02:15 EDT by JEROD VELAZQUEZ
--- NOTE | 2025-05-02 16:16 | XR_ITS ---
[facility] [place] [id number] Patient Name: RAGHAV REGALADO MRN: [id number] date: 1955 Sex: M Assigned Patient Location: ED.MAIN Current Patient Location: ED.MAIN Accession/Order Number: [id number] Exam Date: 05/02/2025 16:49 Report Date: 05/02/2025 16:50 At the request of: DENNYS MELGAR MD Procedure: XR chest 1V XR chest 1V 05/02/2025 4:44 PM SIGNS AND SYMPTOMS: ^Peripheral edema ^Y PROTOCOL: Frontal radiograph of the chest COMPARISON: None FINDINGS: The trachea is midline. The heart and mediastinal structures are within normal limits. The lung parenchyma is clear. The bony thorax is intact. Degenerative changes are noted in the thoracic spine and shoulders. XR/XR chest 1V IMPRESSION: No acute cardiopulmonary pathology. Impression dictated by: Francis Guillory M.D. 05/02/2025 4:50 PM Dictation Location: [place] [address] Electronically authenticated by: [id number] Y Date: 05/02/2025 16:50
--- NOTE | 2025-05-02 16:17 | ED_ITS ---
HPI HPI - General Adult General Chief complaint: Extremity Problem, Nontraumatic Stated complaint: NUMBNESS IN L LEG, LEGS BUCKLING Time Seen by Provider: 05/02/25 16:08 Source: patient Mode of arrival: Wheelchair History of Present Illness HPI narrative: 69-year-old male presents for swelling in his left leg. He has had this for multiple days, close to a week. He is on dialysis and has not missed any dialysis appointments. He had dialysis yesterday. He has had right leg amputation. No chest pain or shortness of breath and his hands are not swollen. He has been taking all of his medications. No injury. He has no history of DVT. Related Data Home Medications ?Medication ?Instructions ?Recorded ?Confirmed [id number]-[id number] 1 drp ophthal lupillo (eye) QID 05/02/25 05/02/25 80 0.5 %-1 %-0.5 % eye drops (Refresh Optive Advanced) gabapentin 300 mg capsule 300 mg PO TID 05/02/2505/02 insulin human U-100 NPH-regulr 38 unit subcut QAM 04/1605/02/25 70-30 mix 100 unit/mL subcutaneous susp (Humulin 70/30 U-100 Insulin) midodrine 10 mg tablet 10 mg PO .3 times a wk PRN l ow 05/02/25 05/02/25 blood pressure ropinirole 0.25 mg tablet 0.25 mg PO QPM 05/02/2504/16 Allergies Allergy/AdvReac Type Severity Reaction Status Date / Time No Known Drug Allergies Allergy Verified 05/02/25 16:07 Review of Systems ROS Narrative A ten point review of systems is negative except as noted above. PFSH PFSH Social History Little interest or pleasure in doing things: not at all Feeling down, depressed, or hopeless: not at all Exam Narrative Exam Narrative: Nurses note and vital signs reviewed and patient is not hypoxic. General: The patient appears well and in no apparent distress. Patient is resting comfortably on cart. Skin: Warm, dry, no pallor noted. There is no rash noted. Head: Normocephalic, atraumatic Eye: Normal conjunctiva, no drainage Ears, Nose, Mouth, and Throat: oral mucosa is moist. Nares patent. Cardiovascular: Regular Rate and Rhythm Respiratory: Patient is in no distress, no accessory muscle use, lungs are clear to auscultation, no wheezing, rales or rhonchi Back: non-tender GI: Soft and nontender Musculoskeletal: Right leg is status post amputation. Left leg has 1+ edema in his ankle. Dorsalis pedis pulse 2+, capillary refill brisk. No calf tenderness or swelling and there is no tenderness in the left thigh. Neurological: A&O, normal speech Psychiatric: Cooperative Constitutional Vital Signs, click to edit/add: Last Vital Signs Temp 98.6 F 05/02/25 16:01 Pulse 71 05/02/25 18:14 Resp 16 05/02/25 18:14 BP 186/86 H 05/02/25 18:14 Pulse Ox 100 05/02/25 18:14 O2 Del Method Room Air 05/02/25 16:01 Course Vital Signs Vital signs: Vital Signs Temperature 98.6 F 05/02/25 16:01 Pulse Rate 78 05/02/25 16:01 Respiratory Rate 18 05/02/25 16:01 Blood Pressure 177/84 H 05/02/25 16:01 Pulse Oximetry 100 05/02/25 16:01 Oxygen Delivery Method Room Air 05/02/25 16:01 Temperature 98.6 F 05/02/25 16:01 Pulse Rate 71 05/02/25 18:14 Respiratory Rate 16 05/02/25 18:14 Blood Pressure 186/86 H 05/02/25 18:14 Pulse Oximetry 100 05/02/25 18:14 Oxygen Delivery Method Room Air 05/02/25 16:01 Medical Decision Making [facility] Narrative Medical decision making narrative: His workup is negative including Doppler. No evidence of DVT. He has no evidence of volume overload. He had dialysis yesterday and is scheduled for dialysis tomorrow. I would refrain from putting him on a diuretic because he is a dialysis patient and he is going to follow-up promptly with his PCP and will elevate his leg. Treatment diagnosis and follow-up were discussed with the patient. Differential Diagnosis Differential Diagnosis: Peripheral edema, DVT Lab Data Lab results reviewed: Yes I reviewed the patient's lab results Labs: Lab Results 05/02/25 Range/Units 16:36 WBC 5.3 (4.0-11.0) 10^3/uL RBC 2.60 L (4.70-6.10) 10^6/uL Hgb 8.9 L (14.0-18.0) g/dL Hct 26.1 L (42.0-54.0) % MCV 100.4 H (80.0-94.0) fL MCH 34.2 H (25.9-34.0) pg MCHC 34.1 (29.9-35.2) g/dL RDW 13.7 (11.0-15.0) % Plt Count 107 L (150-450) 10^3/uL MPV 8.7 L (9.5-13.5) fL Neut % (Auto) 65.0 (43.0-75.0) % Lymph % (Auto) 20.5 (20.5-60.0) % [place] % (Auto) 6.6 (1.7-12.0) % Eos % (Auto) 7.1 H (0.9-7.0) % Baso % (Auto) 0.6 (0.2-2.0) % Neut # (Auto) 3.5 (1.4-6.5) 10^3/uL Lymph # (Auto) 1.1 L (1.2-3.8) 10^3/uL [place] # (Auto) 0.4 (0.3-0.8) 10^3/uL Eos # (Auto) 0.4 (0.0-0.7) 10^3/uL Baso # (Auto) 0.0 (0.0-0.1) 10^3/uL Abs Immat Gran (auto) 0.01 (0.00-0.03) 10^3/uL Imm/Tot Granulo (auto) 0.2 (0.0-0.5) % Sodium 140 (136-145) mmol/L Potassium 3.9 (3.5-5.1) mmol/L Chloride 99 (98-107) mmol/L Carbon Dioxide 31.7 (21.0-32.0) mmol/L Anion Gap 13.2 BUN 23.0 H (7.0-18.0) mg/dL Creatinine 5.03 H* (0.70-1.30) mg/dL Est GFR ( Amer) 14 L (>=60 mL/min/1.73m^2) Est GFR (Non-Af Amer) 12 L (>=60 mL/min/1.73m^2) BUN/Creatinine Ratio 4.6 Glucose 112 H (74-106) mg/dL Calcium 7.4 L (8.5-10.1) mg/dL Imaging Data Left leg venous Doppler: Radiologist's impression: ITS Impressions Chest X-Ray 05/02/25 16:16 IMPRESSION: No acute cardiopulmonary pathology. Impression dictated by: Francis Guillory M.D. 05/02/2025 4:50 PM Dictation Location: [place] [id number] Electronically authenticated by: [id number] Y Date: 05/02/2025 16:50 Left leg venous Doppler impression: No DVT in the left lower extremity Discharge Plan Discharge Chief Complaint: Extremity Problem, Nontraumatic Clinical Impression: Peripheral edema Patient Disposition: Home, Self-Care Time of Disposition Decision: 18:20 Condition: Good Mode of Transportation: Private Vehicle Prescriptions / Home Meds: No Action Refresh Optive Advanced 0.5-1-0.5 % drops 1 drp OPHTHALMIC (EYE) QID gabapentin 300 mg capsule 300 mg PO TID ropinirole 0.25 mg tablet 0.25 mg PO QPM midodrine 10 mg tablet 10 mg PO .3 times a wk PRN (Reason: low blood pressure) Patient Comments: dialysis days for low SBP Humulin 70/30 U-100 Insulin 100 unit/mL (70-30) suspension 38 unit SUBCUT QAM Patient Comments: 36 units in the evening Print Language: Lao Instructions: Leg Edema (ED) Additional Instructions: Elevate your foot. Follow-up with your PCP. Referrals: Litzy Alamo NP [Primary Care Provider] - 1 week
--- NOTE | 2025-05-02 16:40 | PC.NURSE ---
left leg swelling and numbness for 1 wk.
[2025-05-02 16:52] LABS: Hematocrit 26.1 % (42.0-54.0); Hemoglobin 8.9 g/dL (14.0-18.0); Immature Granulocytes Abs Auto 0.01 10^3/uL (0.00-0.03); Immature Granulocytes Pct Auto 0.2 % (0.0-0.5); Lymphocytes Absolute Auto 1.1 10^3/uL (1.2-3.8); Mean Corpuscular HGB Conc 34.1 g/dL (29.9-35.2); Mean Corpuscular Hemoglobin 34.2 pg (25.9-34.0); Mean Corpuscular Volume 100.4 fL (80.0-94.0); Platelet Count 107 10^3/uL (150-450); Red Blood Count 2.60 10^6/uL (4.70-6.10); White Blood Count 5.3 10^3/uL (4.0-11.0)
[2025-05-02 17:06] LABS: Anion Gap 13.2; Blood Urea Nitrogen 23.0 mg/dL (7.0-18.0); Calcium 7.4 mg/dL (8.5-10.1); Carbon Dioxide 31.7 mmol/L (21.0-32.0); Chloride 99 mmol/L (98-107); Estimated GFR (African America 14 (>=60 mL/min/1.73m^2); Estimated GFR (Non-African Ame 12 (>=60 mL/min/1.73m^2); Glucose 112 mg/dL (74-106); Potassium 3.9 mmol/L (3.5-5.1); Sodium 140 mmol/L (136-145)
[2025-05-02 17:30] VITALS: BP 174/79; PULSE 71; O2SAT 99
[2025-05-02 18:14] VITALS: BP 186/86; PULSE 71; O2SAT 100
== END 2025-05-02 18:42 | disposition home or self-care (01) ==
PROVIDERS: Emergency Provider Emergency Medicine; PCP Nurse Practitioner Family
DX: R60.0 Localized edema (principal); Z99.2 Dependence on renal dialysis; Z89.611 Acquired absence of right leg above knee
CPT/HCPCS: 36415; 71045; 80048; 85025; 93005; 93971; 99285